=== PATIENT | male | born 1960 | race Hispanic/Latino ===

== ENCOUNTER 2020-12-21 11:47 | Emergency (ER) | payer SELFPAY ==
[~2020-12-21] VITALS: Ht 154.9 cm; Wt 154.2 kg
[~2020-12-21 11:47] MED LIST: NAPR375T6 PO; TAMS-1 PO
[2020-12-21] MEDS ORDERED: ONDANSETRON 4MG INJ IVP SCH (12:30)
[2020-12-21] MEDS ORDERED: 0.9%NACL 1000ML 1,000 ML IV SCH (12:30)
[2020-12-21] MEDS ORDERED: HYDROMORPHONE 1 MG INJ IVP SCH (12:30)
[2020-12-21 12:56] LABS: BASOPHILS % (AUTO) 0.5 % (0.0-5.0); EOSINOPHILS % (AUTO) 4.7 % (0.0-8.0); HEMATOCRIT 41.3 % (42-54); LYMPHOCYTES % (AUTO) 12.1 % (21.0-51.0); MEAN CORPUSCULAR HEMOGLOBIN 31.3 pg (27.0-33.0); MEAN CORPUSCULAR HGB CONC 33.9 g/dL (32.0-36.0); MEAN CORPUSCULAR VOLUME 92.2 fL (79-99); MONOCYTES % (AUTO) 9.2 % (3.0-13.0); NEUTROPHILS % (AUTO) 73.2 % (40.0-77.0); PLATELET COUNT (AUTO) 296 K/uL (130-400); RED BLOOD CELL COUNT(AUTO) 4.48 MIL/uL (4.50-6.20); RED CELL DISTRIBUTION WIDTH 13.2 % (11.0-15.5)
[2020-12-21 13:11] LABS: CREATININE 1.3 mg/dL (0.5-1.5); POTASSIUM 4.4 mmol/L (3.5-5.1)
[2020-12-21 13:15] LABS: ALBUMIN 3.1 g/dL (3.5-5.0); BILIRUBIN,TOTAL 0.3 mg/dL (0.2-1.0); TOTAL PROTEIN, SERUM 9.3 g/dL (6.0-8.3)
[2020-12-21] MEDS ORDERED: NAPR-1180 PO (13:21)
[2020-12-21] MEDS ORDERED: KETOROLAC 30MG VIAL (30MG/ML) ONE (13:27)
[2020-12-21] MEDS ORDERED: KETOROLAC 30MG VIAL (30MG/ML) IV ONE (13:30)
[2020-12-21] MEDS ORDERED: HYDROMORPHONE 1 MG INJ IVP ONE (13:30)
[2020-12-21 14:00] VITALS: BP 160/72
== END 2020-12-21 14:38 | disposition home or self-care (01) ==
LOC: EDH 11:47
DX: N20.1 Calculus of ureter (principal); Z79.1 Long term (current) use of non-steroidal anti-inflammatories (NSAID); Z79.899 Other long term (current) drug therapy
CPT/HCPCS: 36415; 74176; 80053; 85025; 96361; 96374; 96375; 96376; 99284; J1170 ×2; J1885; J2405

== ENCOUNTER 2021-07-18 08:30 | Emergency (ER) | payer OTHER ==
[~2021-07-18] VITALS: Ht 167.6 cm; Wt 149.7 kg
[~2021-07-18 08:30] MED LIST changes: +NAPR-1180 PO
[2021-07-18 08:32] VITALS: BP 159/50
[2021-07-18] MEDS ORDERED: LORATADINE 10 MG TABLET PO SCH (09:00)
[2021-07-18] MEDS ORDERED: DIPHENHYDRAMINE HCL 25 MG CAPSULE PO ONE (09:00)
[2021-07-18] MEDS ORDERED: SOLU-MEDROL 125MG VIAL IM ONE (09:00)
[2021-07-18] MEDS ORDERED: LORA10TA7 PO (09:12)
[2021-07-18] MEDS ORDERED: HYDR28.32 TP (09:12)
[2021-07-18] MEDS ORDERED: PRED20TA3 PO (09:12)
== END 2021-07-18 09:26 | disposition home or self-care (01) ==
LOC: EDH 08:30
DX: L25.9 Unspecified contact dermatitis, unspecified cause (principal); Z79.1 Long term (current) use of non-steroidal anti-inflammatories (NSAID); Z87.442 Personal history of urinary calculi
CPT/HCPCS: 96372; 99283; J2930; Q0163

== ENCOUNTER 2023-09-07 13:12 | Inpatient (IN) | payer BC ==
[~2023-09-07] VITALS: Ht 154.9 cm; Wt 100.9 kg
[~2023-09-07 13:12] MED LIST changes: +HYDR28.32 TP; +LORA10TA7 PO; +PRED20TA3 PO
[2023-09-07 14:23] LABS: BASOPHILS # (AUTO) 0.09 K/uL (0.00-0.20); BASOPHILS % (AUTO) 0.7 % (0.0-5.0); EOSINOPHILS # (AUTO) 0.08 K/uL (0.00-0.70); EOSINOPHILS % (AUTO) 0.6 % (0.0-8.0); HEMATOCRIT 42.6 % (42-54); IMMATURE GRANULOCYTE ABSOLUTE 0.13 K/uL (0-1); LYMPHOCYTES # (AUTO) 1.3 K/uL (1.0-4.8); LYMPHOCYTES % (AUTO) 9.7 % (21.0-51.0); MEAN CORPUSCULAR HGB CONC 34.3 g/dL (32.0-36.0); MEAN CORPUSCULAR VOLUME 87.5 fL (79-99); MONOCYTES # (AUTO) 1.1 K/uL (0.1-1.0); MONOCYTES % (AUTO) 8.6 % (3.0-13.0); NEUTROPHILS # (AUTO) 10.5 K/uL (1.8-7.7); NEUTROPHILS % (AUTO) 79.4 % (40.0-77.0); PLATELET COUNT (AUTO) 446 K/uL (130-400); RED BLOOD CELL COUNT(AUTO) 4.87 MIL/uL (4.50-6.20); RED CELL DISTRIBUTION WIDTH 14.8 % (11.0-15.5); WHITE BLOOD COUNT (AUTO) 13.2 K/uL (4.8-10.8)
[2023-09-07 14:48] LABS: ALBUMIN 1.6 g/dL (3.5-5.0); BILIRUBIN,TOTAL 0.3 mg/dL (0.2-1.0); CREATININE 0.5 mg/dL (0.5-1.3); POTASSIUM 3.1 mmol/L (3.5-5.1); TOTAL PROTEIN, SERUM 7.4 g/dL (6.0-8.3)
[2023-09-07 15:40] LABS: APPEARANCE,URINE CLOUDY (CLEAR); BILIRUBIN,URINE NEGATIVE (NEGATIVE); COLOR,URINE YELLOW (YELLOW); GLUCOSE, URINE (UA) NEGATIVE (NEGATIVE); KETONES,URINE 40 mg/dL (NEGATIVE); LEUKOCYTE ESTERASE ,URINE 250 Leu/uL (NEGATIVE); NITRATE,URINE NEGATIVE (NEGATIVE); OCCULT BLOOD,URINE SMALL (NEGATIVE); PROTEIN,URINE 30 mg/dL (NEGATIVE)
[2023-09-07 15:43] LABS: ADD UA MICROSCOPIC YES
[2023-09-07 15:45] LABS: BACTERIA,URINE MOD /HPF (None Seen); MUCUS,URINE RARE LPF (None Seen); SQUAMOUS EPITHELIAL CELL,UR RARE /HPF (0-2); WBC,URINE 51-100 /HPF (0-1)
[2023-09-07] MEDS: VANCOMYCIN HCL 125 MG/ 2.5 ML SOLN ORAL.SYG PO SCH (17:49)
[2023-09-07] MEDS ORDERED: acetaMINOPHEN 325 MG TAB PO PRN ×2 (19:30)
[2023-09-07] MEDS ORDERED: MORPHINE 2 MG SYG IVP PRN (19:30)
[2023-09-07] MEDS ORDERED: DEXTROSE 50%-WATER 50 ML DISP.SYRIN IV PRN (19:30)
[2023-09-07] MEDS ORDERED: LACTULOSE 20 GM/30 ML UDCUP PO PRN (19:30)
[2023-09-07] MEDS ORDERED: ZOLPidem TARTrate 5 MG TAB PO PRN (19:30)
[2023-09-07] MEDS ORDERED: FAMOTIDINE 20MG VIAL IV PRN (19:30)
[2023-09-07] MEDS ORDERED: guaiFENesin-coDEINE-DM 200/20 MG 10 ML PO PRN (19:30)
[2023-09-07] MEDS ORDERED: DiphenhydrAMINE HCL 50 MG/ML VIAL IV PRN (19:30)
[2023-09-07] MEDS ORDERED: KETOROLAC 15MG/ML VIAL (15MG/ML) IV PRN (19:30)
[2023-09-07] MEDS ORDERED: GLUCAGON 1MG KIT 1 MG ML IM PRN (19:30)
[2023-09-07] MEDS ORDERED: NITROGLYCERIN 0.4 MG SL TAB SL PRN (19:30)
[2023-09-07 20:45] VITALS: BP 140/60; PULSE 80; RESP 20
[2023-09-07] MEDS: INSULIN humuLIN R 100 UNIT/ML 3ML SQ SCH (21:00)
[2023-09-08] VITALS: BP 118/63; PULSE 74; RESP 16
[2023-09-08] MEDS: HEParin 5,000 UNIT VIAL SQ SCH (00:13)
[2023-09-08] MEDS ORDERED: NAPROXEN 375 MG PO PRN (00:30)
[2023-09-08] MEDS: KCL 20 MEQ ERTAB PO PRN (00:54)
[2023-09-08 03:43] VITALS: BP 145/79; PULSE 57; RESP 20
[2023-09-08 04:38] LABS: BASOPHILS # (AUTO) 0.07 K/uL (0.00-0.20); BASOPHILS % (AUTO) 0.5 % (0.0-5.0); EOSINOPHILS # (AUTO) 0.11 K/uL (0.00-0.70); EOSINOPHILS % (AUTO) 0.8 % (0.0-8.0); HEMATOCRIT 39.7 % (42-54); IMMATURE GRANULOCYTE ABSOLUTE 0.13 K/uL (0-1); LYMPHOCYTES # (AUTO) 1.6 K/uL (1.0-4.8); LYMPHOCYTES % (AUTO) 12.3 % (21.0-51.0); MEAN CORPUSCULAR HEMOGLOBIN 30.5 pg (27.0-33.0); MEAN CORPUSCULAR VOLUME 89.6 fL (79-99); MONOCYTES # (AUTO) 1.2 K/uL (0.1-1.0); MONOCYTES % (AUTO) 9.2 % (3.0-13.0); NEUTROPHILS % (AUTO) 76.2 % (40.0-77.0); PLATELET COUNT (AUTO) 384 K/uL (130-400); RED BLOOD CELL COUNT(AUTO) 4.43 MIL/uL (4.50-6.20); RED CELL DISTRIBUTION WIDTH 14.6 % (11.0-15.5); WHITE BLOOD COUNT (AUTO) 13.1 K/uL (4.8-10.8)
[2023-09-08 05:00] LABS: ALBUMIN 1.6 g/dL (3.5-5.0); BILIRUBIN,DIRECT 0.2 mg/dL (0.0-0.3); BILIRUBIN,TOTAL 0.4 mg/dL (0.2-1.0); CREATININE 0.5 mg/dL (0.5-1.3); MAGNESIUM 1.7 mg/dL (1.80-2.40); POTASSIUM 3.1 mmol/L (3.5-5.1)
[2023-09-08 05:33] LABS: HEMOGLOBIN A1C 5.8 % (4.0-6.0)
[2023-09-08] MEDS: MAGNESIUM 2GM PREMIX 50ML 50 ML IV PRN (05:47)
[2023-09-08 08:00] VITALS: BP 115/55; PULSE 70; RESP 19; O2SAT 94
[2023-09-08] MEDS: cefTRIAXone 1G VIAL IVPB SCH (10:26)
[2023-09-08] MEDS: LACTOBACILLUS RHAMNOSUS GG 1 EACH CAP.SPRINK PO SCH (10:26)
[2023-09-08] MEDS: tamSULOsin HCL 0.4 MG CAP.ER.24H PO SCH (10:29)
[2023-09-08] MEDS: LORATAdine 10 mg 10 MG TABLET PO SCH (10:29)
[2023-09-08 12:00] VITALS: BP 112/63; PULSE 71; RESP 18
[2023-09-08] MEDS ORDERED: COMPOUND PO REF 1 EA BTL MISC PRN (13:30)
[2023-09-08] MEDS ORDERED: COMPOUND PO MISCELLANEOUS 1 EACH MISC MISC PRN (13:30)
[2023-09-08] MEDS: VANCOMYCIN HCL 125 MG/ 2.5 ML SOLN ORAL.SYG PO SCH (13:46)
[2023-09-08 16:00] VITALS: BP 114/57; PULSE 72; RESP 18
[2023-09-08 20:00] VITALS: BP 123/61; PULSE 69; RESP 19; O2SAT 95
[2023-09-09] VITALS (7 sets, daily range): BP systolic 121–152; BP diastolic 59–82; PULSE 67–99; RESP 16–19; O2SAT 94–97
[2023-09-09 05:13] LABS: BASOPHILS # (AUTO) 0.04 K/uL (0.00-0.20); BASOPHILS % (AUTO) 0.4 % (0.0-5.0); EOSINOPHILS % (AUTO) 1.8 % (0.0-8.0); HEMATOCRIT 41.4 % (42-54); IMMATURE GRANULOCYTE ABSOLUTE 0.14 K/uL (0-1); LYMPHOCYTES # (AUTO) 1.6 K/uL (1.0-4.8); LYMPHOCYTES % (AUTO) 14.8 % (21.0-51.0); MEAN CORPUSCULAR HEMOGLOBIN 30.7 pg (27.0-33.0); MEAN CORPUSCULAR HGB CONC 34.1 g/dL (32.0-36.0); MONOCYTES # (AUTO) 0.8 K/uL (0.1-1.0); MONOCYTES % (AUTO) 7.5 % (3.0-13.0); NEUTROPHILS % (AUTO) 74.2 % (40.0-77.0); PLATELET COUNT (AUTO) 350 K/uL (130-400); RED CELL DISTRIBUTION WIDTH 14.7 % (11.0-15.5); WHITE BLOOD COUNT (AUTO) 10.8 K/uL (4.8-10.8)
[2023-09-09] MEDS ORDERED: AMIN30LI28 PO (05:24)
[2023-09-09] MEDS ORDERED: SENN8.6T32 PO (05:24)
[2023-09-09] MEDS ORDERED: LOPE-198 PO (05:24)
[2023-09-09] MEDS ORDERED: AMLO-258 PO (05:24)
[2023-09-09] MEDS ORDERED: ASCO500T10 PO (05:24)
[2023-09-09] MEDS ORDERED: FIDA200T PO (05:24)
[2023-09-09] MEDS ORDERED: SIME80TA12 PO (05:24)
[2023-09-09] MEDS ORDERED: ENOX40DI8 SQ (05:24)
[2023-09-09] MEDS ORDERED: MULT-264 PO (05:24)
[2023-09-09] MEDS ORDERED: MELA3TAB41 PO (05:24)
[2023-09-09] MEDS ORDERED: ACET325T51 PO (05:24)
[2023-09-09 05:49] LABS: ALBUMIN 1.6 g/dL (3.5-5.0); BILIRUBIN,TOTAL 0.2 mg/dL (0.2-1.0); CREATININE 0.5 mg/dL (0.5-1.3); MAGNESIUM 1.9 mg/dL (1.80-2.40)
[2023-09-09] MEDS: POTASSIUM CHLORIDE 10MEQ/100ML 100 ML IV PRN (06:07)
[2023-09-10] VITALS (7 sets, daily range): BP systolic 126–136; BP diastolic 63–72; PULSE 68–78; RESP 17–18; O2SAT 96
[2023-09-10] MEDS: LOPERAMIDE 1 MG/7.5 ML UDCUP PO PRN (02:40)
[2023-09-10 05:50] LABS: BASOPHILS # (AUTO) 0.06 K/uL (0.00-0.20); BASOPHILS % (AUTO) 0.5 % (0.0-5.0); EOSINOPHILS # (AUTO) 0.24 K/uL (0.00-0.70); HEMATOCRIT 40.5 % (42-54); IMMATURE GRANULOCYTE ABSOLUTE 0.14 K/uL (0-1); LYMPHOCYTES # (AUTO) 1.6 K/uL (1.0-4.8); LYMPHOCYTES % (AUTO) 13.1 % (21.0-51.0); MEAN CORPUSCULAR HEMOGLOBIN 29.9 pg (27.0-33.0); MEAN CORPUSCULAR HGB CONC 33.1 g/dL (32.0-36.0); MEAN CORPUSCULAR VOLUME 90.4 fL (79-99); MONOCYTES # (AUTO) 0.9 K/uL (0.1-1.0); MONOCYTES % (AUTO) 7.8 % (3.0-13.0); NEUTROPHILS # (AUTO) 9.1 K/uL (1.8-7.7); NEUTROPHILS % (AUTO) 75.4 % (40.0-77.0); PLATELET COUNT (AUTO) 419 K/uL (130-400); RED BLOOD CELL COUNT(AUTO) 4.48 MIL/uL (4.50-6.20); RED CELL DISTRIBUTION WIDTH 14.9 % (11.0-15.5)
[2023-09-10 06:08] LABS: ALBUMIN 1.6 g/dL (3.5-5.0); BILIRUBIN,TOTAL 0.2 mg/dL (0.2-1.0); CREATININE 0.5 mg/dL (0.5-1.3); MAGNESIUM 1.8 mg/dL (1.80-2.40); POTASSIUM 3.1 mmol/L (3.5-5.1); TOTAL PROTEIN, SERUM 6.8 g/dL (6.0-8.3)
[2023-09-11] VITALS (7 sets, daily range): BP systolic 121–144; BP diastolic 59–69; PULSE 70–80; RESP 17–22; O2SAT 97
[2023-09-11 08:27] LABS: ALBUMIN 1.7 g/dL (3.5-5.0); BILIRUBIN,TOTAL 0.3 mg/dL (0.2-1.0); CREATININE 0.6 mg/dL (0.5-1.3); MAGNESIUM 1.9 mg/dL (1.80-2.40); POTASSIUM 3.4 mmol/L (3.5-5.1); TOTAL PROTEIN, SERUM 7.3 g/dL (6.0-8.3)
[2023-09-11] MEDS: POTASSIUM CHLORIDE 10MEQ SR TAB PO PRN (14:01)
[2023-09-12] VITALS (8 sets, daily range): BP systolic 121–133; BP diastolic 60–62; PULSE 68–80; RESP 17–19; O2SAT 97
[2023-09-13] VITALS (7 sets, daily range): BP systolic 109–125; BP diastolic 57–59; PULSE 75–82; RESP 18–20; O2SAT 96–99
[2023-09-13 09:04] LABS: BASOPHILS # (AUTO) 0.12 K/uL (0.00-0.20); BASOPHILS % (AUTO) 0.4 % (0.0-5.0); EOSINOPHILS # (AUTO) 0.02 K/uL (0.00-0.70); EOSINOPHILS % (AUTO) 0.1 % (0.0-8.0); HEMATOCRIT 41.1 % (42-54); IMMATURE GRANULOCYTE ABSOLUTE 0.27 K/uL (0-1); LYMPHOCYTES % (AUTO) 3.7 % (21.0-51.0); MEAN CORPUSCULAR HGB CONC 33.8 g/dL (32.0-36.0); MEAN CORPUSCULAR VOLUME 88.6 fL (79-99); MONOCYTES # (AUTO) 1.8 K/uL (0.1-1.0); MONOCYTES % (AUTO) 6.4 % (3.0-13.0); NEUTROPHILS # (AUTO) 24.7 K/uL (1.8-7.7); NEUTROPHILS % (AUTO) 88.4 % (40.0-77.0); PLATELET COUNT (AUTO) 345 K/uL (130-400); RED BLOOD CELL COUNT(AUTO) 4.64 MIL/uL (4.50-6.20); RED CELL DISTRIBUTION WIDTH 15.4 % (11.0-15.5)
[2023-09-13 09:18] LABS: ALBUMIN 1.4 g/dL (3.5-5.0); BILIRUBIN,TOTAL 0.5 mg/dL (0.2-1.0); CREATININE 0.6 mg/dL (0.5-1.3); MAGNESIUM 2.2 mg/dL (1.80-2.40); POTASSIUM 3.6 mmol/L (3.5-5.1); TOTAL PROTEIN, SERUM 7.2 g/dL (6.0-8.3)
[2023-09-13 14:08] LABS: HEMATOCRIT 42.1 % (42-54); MEAN CORPUSCULAR HEMOGLOBIN 30.4 pg (27.0-33.0); MEAN CORPUSCULAR HGB CONC 33.7 g/dL (32.0-36.0); MEAN CORPUSCULAR VOLUME 90.1 fL (79-99); RED BLOOD CELL COUNT(AUTO) 4.67 MIL/uL (4.50-6.20); RED CELL DISTRIBUTION WIDTH 15.1 % (11.0-15.5); WHITE BLOOD COUNT (AUTO) 25.4 K/uL (4.8-10.8)
[2023-09-13] MEDS: MAG/ALUM/SIMETH 30 ML UDCUP PO PRN (23:40)
[2023-09-14] VITALS (7 sets, daily range): BP systolic 103–121; BP diastolic 55–63; PULSE 67–84; RESP 18–20; O2SAT 94
[2023-09-14 13:12] LABS: MEAN CORPUSCULAR HEMOGLOBIN 30.6 pg (27.0-33.0); MEAN CORPUSCULAR HGB CONC 33.2 g/dL (32.0-36.0); MEAN CORPUSCULAR VOLUME 92.3 fL (79-99); RED BLOOD CELL COUNT(AUTO) 4.44 MIL/uL (4.50-6.20); RED CELL DISTRIBUTION WIDTH 15.4 % (11.0-15.5); WHITE BLOOD COUNT (AUTO) 17.9 K/uL (4.8-10.8)
[2023-09-14 13:48] LABS: ALBUMIN 1.3 g/dL (3.5-5.0); BILIRUBIN,TOTAL 0.4 mg/dL (0.2-1.0); CREATININE 0.6 mg/dL (0.5-1.3); POTASSIUM 4.1 mmol/L (3.5-5.1); TOTAL PROTEIN, SERUM 6.9 g/dL (6.0-8.3)
[2023-09-15] VITALS (8 sets, daily range): BP systolic 108–123; BP diastolic 57–68; PULSE 71–79; RESP 18–20; O2SAT 97–98
[2023-09-15 05:23] LABS: BASOPHILS # (AUTO) 0.05 K/uL (0.00-0.20); BASOPHILS % (AUTO) 0.4 % (0.0-5.0); EOSINOPHILS # (AUTO) 0.18 K/uL (0.00-0.70); EOSINOPHILS % (AUTO) 1.4 % (0.0-8.0); HEMATOCRIT 37.4 % (42-54); LYMPHOCYTES # (AUTO) 1.4 K/uL (1.0-4.8); MEAN CORPUSCULAR HEMOGLOBIN 29.6 pg (27.0-33.0); MEAN CORPUSCULAR HGB CONC 33.4 g/dL (32.0-36.0); MEAN CORPUSCULAR VOLUME 88.6 fL (79-99); MONOCYTES % (AUTO) 7.8 % (3.0-13.0); NEUTROPHILS # (AUTO) 10.2 K/uL (1.8-7.7); NEUTROPHILS % (AUTO) 78.6 % (40.0-77.0); PLATELET COUNT (AUTO) 346 K/uL (130-400); RED BLOOD CELL COUNT(AUTO) 4.22 MIL/uL (4.50-6.20); RED CELL DISTRIBUTION WIDTH 15.3 % (11.0-15.5)
[2023-09-15 05:40] LABS: ALBUMIN 1.3 g/dL (3.5-5.0); BILIRUBIN,TOTAL 0.4 mg/dL (0.2-1.0); CREATININE 0.5 mg/dL (0.5-1.3); POTASSIUM 3.4 mmol/L (3.5-5.1); TOTAL PROTEIN, SERUM 6.5 g/dL (6.0-8.3)
[2023-09-15] MEDS: KCL 20 MEQ ERTAB PO ONE ×2 (10:27→19:59)
[2023-09-16] VITALS (8 sets, daily range): BP systolic 113–143; BP diastolic 60–76; PULSE 67–78; RESP 16–19; O2SAT 97
[2023-09-16 03:48] LABS: BASOPHILS # (AUTO) 0.04 K/uL (0.00-0.20); BASOPHILS % (AUTO) 0.5 % (0.0-5.0); EOSINOPHILS # (AUTO) 0.13 K/uL (0.00-0.70); EOSINOPHILS % (AUTO) 1.5 % (0.0-8.0); HEMATOCRIT 39.6 % (42-54); IMMATURE GRANULOCYTE ABSOLUTE 0.06 K/uL (0-1); LYMPHOCYTES # (AUTO) 1.6 K/uL (1.0-4.8); LYMPHOCYTES % (AUTO) 18.4 % (21.0-51.0); MEAN CORPUSCULAR HEMOGLOBIN 29.9 pg (27.0-33.0); MEAN CORPUSCULAR HGB CONC 33.8 g/dL (32.0-36.0); MEAN CORPUSCULAR VOLUME 88.4 fL (79-99); MONOCYTES % (AUTO) 11.7 % (3.0-13.0); NEUTROPHILS # (AUTO) 5.8 K/uL (1.8-7.7); NEUTROPHILS % (AUTO) 67.2 % (40.0-77.0); PLATELET COUNT (AUTO) 379 K/uL (130-400); RED BLOOD CELL COUNT(AUTO) 4.48 MIL/uL (4.50-6.20); RED CELL DISTRIBUTION WIDTH 15.2 % (11.0-15.5); WHITE BLOOD COUNT (AUTO) 8.6 K/uL (4.8-10.8)
[2023-09-16 04:12] LABS: ALBUMIN 1.4 g/dL (3.5-5.0); BILIRUBIN,TOTAL 0.3 mg/dL (0.2-1.0); CREATININE 0.5 mg/dL (0.5-1.3); MAGNESIUM 1.9 mg/dL (1.80-2.40); POTASSIUM 4.6 mmol/L (3.5-5.1); TOTAL PROTEIN, SERUM 6.8 g/dL (6.0-8.3)
[2023-09-17 04:19] VITALS: BP_SYST 119; BP_SYST 129; BP_DIAS 67; BP_DIAS 79; PULSE 69; RESP 16
[2023-09-17 05:46] LABS: BASOPHILS # (AUTO) 0.04 K/uL (0.00-0.20); BASOPHILS % (AUTO) 0.5 % (0.0-5.0); EOSINOPHILS # (AUTO) 0.11 K/uL (0.00-0.70); EOSINOPHILS % (AUTO) 1.4 % (0.0-8.0); HEMATOCRIT 40.8 % (42-54); IMMATURE GRANULOCYTE ABSOLUTE 0.05 K/uL (0-1); LYMPHOCYTES # (AUTO) 1.4 K/uL (1.0-4.8); LYMPHOCYTES % (AUTO) 17.9 % (21.0-51.0); MEAN CORPUSCULAR HEMOGLOBIN 30.4 pg (27.0-33.0); MEAN CORPUSCULAR HGB CONC 32.8 g/dL (32.0-36.0); MEAN CORPUSCULAR VOLUME 92.5 fL (79-99); MONOCYTES % (AUTO) 12.1 % (3.0-13.0); NEUTROPHILS # (AUTO) 5.4 K/uL (1.8-7.7); NEUTROPHILS % (AUTO) 67.5 % (40.0-77.0); PLATELET COUNT (AUTO) 395 K/uL (130-400); RED BLOOD CELL COUNT(AUTO) 4.41 MIL/uL (4.50-6.20); RED CELL DISTRIBUTION WIDTH 15.4 % (11.0-15.5); WHITE BLOOD COUNT (AUTO) 7.9 K/uL (4.8-10.8)
[2023-09-17 06:12] LABS: ALBUMIN 1.5 g/dL (3.5-5.0); BILIRUBIN,TOTAL 0.3 mg/dL (0.2-1.0); CREATININE 0.6 mg/dL (0.5-1.3); POTASSIUM 4.1 mmol/L (3.5-5.1)
[2023-09-17 08:00] VITALS: BP 157/68; PULSE 74; RESP 20; O2SAT 97
[2023-09-17 12:00] VITALS: BP 135/84; PULSE 73; RESP 18
[2023-09-17 16:00] VITALS: BP 113/66; PULSE 70; RESP 20
[2023-09-17 19:29] VITALS: O2SAT 99
[2023-09-17 20:00] VITALS: BP 109/59; PULSE 77; RESP 18
[2023-09-18] VITALS (7 sets, daily range): BP systolic 104–130; BP diastolic 54–63; PULSE 72–81; RESP 19–20; O2SAT 97–98
[2023-09-18 05:19] LABS: BASOPHILS # (AUTO) 0.03 K/uL (0.00-0.20); BASOPHILS % (AUTO) 0.4 % (0.0-5.0); EOSINOPHILS % (AUTO) 1.2 % (0.0-8.0); HEMATOCRIT 39.9 % (42-54); IMMATURE GRANULOCYTE ABSOLUTE 0.05 K/uL (0-1); LYMPHOCYTES # (AUTO) 1.5 K/uL (1.0-4.8); LYMPHOCYTES % (AUTO) 18.1 % (21.0-51.0); MEAN CORPUSCULAR HEMOGLOBIN 30.1 pg (27.0-33.0); MEAN CORPUSCULAR HGB CONC 33.1 g/dL (32.0-36.0); MEAN CORPUSCULAR VOLUME 90.9 fL (79-99); MONOCYTES % (AUTO) 12.1 % (3.0-13.0); NEUTROPHILS # (AUTO) 5.7 K/uL (1.8-7.7); NEUTROPHILS % (AUTO) 67.6 % (40.0-77.0); PLATELET COUNT (AUTO) 378 K/uL (130-400); RED BLOOD CELL COUNT(AUTO) 4.39 MIL/uL (4.50-6.20); RED CELL DISTRIBUTION WIDTH 15.2 % (11.0-15.5); WHITE BLOOD COUNT (AUTO) 8.4 K/uL (4.8-10.8)
[2023-09-18 05:40] LABS: ALBUMIN 1.5 g/dL (3.5-5.0); BILIRUBIN,TOTAL 0.2 mg/dL (0.2-1.0); CREATININE 0.6 mg/dL (0.5-1.3); MAGNESIUM 1.9 mg/dL (1.80-2.40); POTASSIUM 3.8 mmol/L (3.5-5.1); TOTAL PROTEIN, SERUM 6.9 g/dL (6.0-8.3)
[2023-09-19] VITALS (8 sets, daily range): BP systolic 107–139; BP diastolic 42–67; PULSE 68–77; RESP 14–18; O2SAT 98–100
[2023-09-19 05:24] LABS: BASOPHILS # (AUTO) 0.03 K/uL (0.00-0.20); BASOPHILS % (AUTO) 0.4 % (0.0-5.0); EOSINOPHILS # (AUTO) 0.13 K/uL (0.00-0.70); EOSINOPHILS % (AUTO) 1.6 % (0.0-8.0); HEMATOCRIT 39.5 % (42-54); IMMATURE GRANULOCYTE ABSOLUTE 0.06 K/uL (0-1); LYMPHOCYTES # (AUTO) 1.6 K/uL (1.0-4.8); LYMPHOCYTES % (AUTO) 19.6 % (21.0-51.0); MEAN CORPUSCULAR HEMOGLOBIN 29.7 pg (27.0-33.0); MEAN CORPUSCULAR HGB CONC 33.2 g/dL (32.0-36.0); MEAN CORPUSCULAR VOLUME 89.6 fL (79-99); MONOCYTES % (AUTO) 11.4 % (3.0-13.0); NEUTROPHILS # (AUTO) 5.5 K/uL (1.8-7.7); NEUTROPHILS % (AUTO) 66.3 % (40.0-77.0); PLATELET COUNT (AUTO) 412 K/uL (130-400); RED BLOOD CELL COUNT(AUTO) 4.41 MIL/uL (4.50-6.20); RED CELL DISTRIBUTION WIDTH 15.4 % (11.0-15.5); WHITE BLOOD COUNT (AUTO) 8.4 K/uL (4.8-10.8)
[2023-09-19 05:46] LABS: ALBUMIN 1.6 g/dL (3.5-5.0); BILIRUBIN,TOTAL 0.3 mg/dL (0.2-1.0); CREATININE 0.5 mg/dL (0.5-1.3); MAGNESIUM 2.3 mg/dL (1.80-2.40); POTASSIUM 3.7 mmol/L (3.5-5.1); TOTAL PROTEIN, SERUM 7.3 g/dL (6.0-8.3)
[2023-09-20] VITALS (8 sets, daily range): BP systolic 103–130; BP diastolic 56–69; PULSE 72–86; RESP 14–18; O2SAT 98
[2023-09-20 06:20] LABS: HEMATOCRIT 40.1 % (42-54); MEAN CORPUSCULAR HEMOGLOBIN 29.8 pg (27.0-33.0); MEAN CORPUSCULAR HGB CONC 32.9 g/dL (32.0-36.0); MEAN CORPUSCULAR VOLUME 90.5 fL (79-99); RED BLOOD CELL COUNT(AUTO) 4.43 MIL/uL (4.50-6.20); RED CELL DISTRIBUTION WIDTH 15.5 % (11.0-15.5)
[2023-09-20 06:32] LABS: CREATININE 0.6 mg/dL (0.5-1.3); POTASSIUM 3.8 mmol/L (3.5-5.1)
[2023-09-20] MEDS: acetaMINOPHEN 325 MG TAB PO PRN (12:05)
[2023-09-21] VITALS (7 sets, daily range): BP systolic 128–149; BP diastolic 61–76; PULSE 66–87; RESP 16–20; O2SAT 95–96
[2023-09-21] MEDS: LACTULOSE 20 GM/30 ML UDCUP PO ONE ×2 (12:24→16:02)
[2023-09-21 13:08] LABS: HEMATOCRIT 44.3 % (42-54); MEAN CORPUSCULAR HEMOGLOBIN 29.5 pg (27.0-33.0); MEAN CORPUSCULAR HGB CONC 32.7 g/dL (32.0-36.0); RED BLOOD CELL COUNT(AUTO) 4.92 MIL/uL (4.50-6.20); RED CELL DISTRIBUTION WIDTH 15.5 % (11.0-15.5); WHITE BLOOD COUNT (AUTO) 6.5 K/uL (4.8-10.8)
[2023-09-21 13:22] LABS: CREATININE 0.7 mg/dL (0.5-1.3); POTASSIUM 4.1 mmol/L (3.5-5.1)
[2023-09-21] MEDS: MAGNESIUM CITRATE 296 ML SOLUTION PO ONE (16:02)
[2023-09-21] MEDS: PEG 3350/NA SULF,BICARB,CL/KCL 4000 ML SOLN PO ONE (16:02)
[2023-09-21] MEDS: PANTOPRAZOLE 40 MG/VIAL IVP SCH (16:03)
[2023-09-21] MEDS: ONDANSETRON 4MG INJ IV PRN (20:08)
[2023-09-22] VITALS (23 sets, daily range): BP systolic 16–140; BP diastolic 45–81; PULSE 60–79; RESP 16–20; O2SAT 96–97
[2023-09-22 04:48] LABS: HEMATOCRIT 43.9 % (42-54); MEAN CORPUSCULAR HEMOGLOBIN 29.4 pg (27.0-33.0); MEAN CORPUSCULAR HGB CONC 32.1 g/dL (32.0-36.0); MEAN CORPUSCULAR VOLUME 91.6 fL (79-99); RED BLOOD CELL COUNT(AUTO) 4.79 MIL/uL (4.50-6.20); RED CELL DISTRIBUTION WIDTH 15.7 % (11.0-15.5); WHITE BLOOD COUNT (AUTO) 9.1 K/uL (4.8-10.8)
[2023-09-22 05:07] LABS: CREATININE 0.6 mg/dL (0.5-1.3); POTASSIUM 3.8 mmol/L (3.5-5.1)
[2023-09-22] MEDS ORDERED: KETAMINE 50MG/ML SYRINGE 50 MG/ML DISP.SYRIN ONE (15:01)
[2023-09-22] MEDS ORDERED: LIDOCAINE PF 100MG/5ML (2%) SYRINGE 5ML ONE (15:01)
[2023-09-22] MEDS ORDERED: proPOFol 10 MG/ML 20ML VIAL IV ONE (15:01)
[2023-09-22] MEDS ORDERED: VANCOMYCIN HCL 125 MG/ 2.5 ML SOLN ORAL.SYG PO SCH (16:30)
[2023-09-23 04:00] VITALS: BP 127/62; PULSE 69; RESP 20
[2023-09-23 05:54] LABS: HEMATOCRIT 38.5 % (42-54); MEAN CORPUSCULAR HEMOGLOBIN 29.8 pg (27.0-33.0); MEAN CORPUSCULAR HGB CONC 33.2 g/dL (32.0-36.0); MEAN CORPUSCULAR VOLUME 89.5 fL (79-99); RED BLOOD CELL COUNT(AUTO) 4.3 MIL/uL (4.50-6.20); RED CELL DISTRIBUTION WIDTH 15.7 % (11.0-15.5); WHITE BLOOD COUNT (AUTO) 5.1 K/uL (4.8-10.8)
[2023-09-23 06:07] LABS: CREATININE 0.6 mg/dL (0.5-1.3); POTASSIUM 3.2 mmol/L (3.5-5.1)
[2023-09-23] MEDS ORDERED: VANCOMYCIN HCL 125 MG/ 2.5 ML SOLN ORAL.SYG PO SCH (07:30)
[2023-09-23 08:00] VITALS: BP 129/46; PULSE 68; RESP 20
[2023-09-23 09:10] VITALS: O2SAT 98
[2023-09-23 12:00] VITALS: BP 110/69; PULSE 66; RESP 20
[2023-09-23 16:00] VITALS: BP 114/60; PULSE 72; RESP 20
[2023-09-23] MEDS: VANCOMYCIN HCL 250/5ML SOLN ORAL.SYG PO SCH (18:04)
[2023-09-23 20:00] VITALS: BP 130/65; PULSE 71; RESP 17; O2SAT 95
[2023-09-24] VITALS (7 sets, daily range): BP systolic 109–144; BP diastolic 55–69; PULSE 65–77; RESP 15–18; O2SAT 95–100
[2023-09-24] MEDS: VANCOMYCIN HCL 250/5ML SOLN ORAL.SYG PO SCH (00:08)
[2023-09-24 03:38] LABS: HEMATOCRIT 40.4 % (42-54); MEAN CORPUSCULAR HEMOGLOBIN 29.9 pg (27.0-33.0); MEAN CORPUSCULAR HGB CONC 32.7 g/dL (32.0-36.0); MEAN CORPUSCULAR VOLUME 91.4 fL (79-99); RED BLOOD CELL COUNT(AUTO) 4.42 MIL/uL (4.50-6.20); RED CELL DISTRIBUTION WIDTH 15.7 % (11.0-15.5); WHITE BLOOD COUNT (AUTO) 5.5 K/uL (4.8-10.8)
[2023-09-24 03:49] LABS: CREATININE 0.6 mg/dL (0.5-1.3); MAGNESIUM 1.8 mg/dL (1.80-2.40); POTASSIUM 3.5 mmol/L (3.5-5.1)
[2023-09-24] MEDS: POTASSIUM CHLORIDE 10% ELIXIR 20 MEQ/15 ML UDCUP PO PRN (08:30)
[2023-09-25] VITALS (8 sets, daily range): BP systolic 127–134; BP diastolic 55–69; PULSE 58–66; RESP 17–24; O2SAT 100
[2023-09-25 06:02] LABS: HEMATOCRIT 38.2 % (42-54); MEAN CORPUSCULAR HEMOGLOBIN 29.3 pg (27.0-33.0); MEAN CORPUSCULAR HGB CONC 32.7 g/dL (32.0-36.0); MEAN CORPUSCULAR VOLUME 89.7 fL (79-99); RED BLOOD CELL COUNT(AUTO) 4.26 MIL/uL (4.50-6.20); RED CELL DISTRIBUTION WIDTH 15.9 % (11.0-15.5); WHITE BLOOD COUNT (AUTO) 4.5 K/uL (4.8-10.8)
[2023-09-25 06:10] LABS: CREATININE 0.7 mg/dL (0.5-1.3); POTASSIUM 3.2 mmol/L (3.5-5.1)
[2023-09-25] MEDS: KETOROLAC 15MG/ML VIAL (15MG/ML) IV ONE (13:51)
[2023-09-25] MEDS: VANCOMYCIN HCL 250/5ML SOLN ORAL.SYG PO SCH (17:47)
[2023-09-26] VITALS (8 sets, daily range): BP systolic 116–147; BP diastolic 59–72; PULSE 64–74; RESP 14–24; O2SAT 97–100
[2023-09-26 06:07] LABS: HEMATOCRIT 38.6 % (42-54); MEAN CORPUSCULAR HEMOGLOBIN 29.7 pg (27.0-33.0); MEAN CORPUSCULAR HGB CONC 32.1 g/dL (32.0-36.0); MEAN CORPUSCULAR VOLUME 92.6 fL (79-99); RED BLOOD CELL COUNT(AUTO) 4.17 MIL/uL (4.50-6.20); WHITE BLOOD COUNT (AUTO) 4.3 K/uL (4.8-10.8)
[2023-09-26 06:18] LABS: CREATININE 0.7 mg/dL (0.5-1.3); POTASSIUM 3.7 mmol/L (3.5-5.1)
[2023-09-27] VITALS (7 sets, daily range): BP systolic 122–154; BP diastolic 57–69; PULSE 64–68; RESP 16–18; O2SAT 96
[2023-09-27 05:28] LABS: HEMATOCRIT 37.6 % (42-54); MEAN CORPUSCULAR HEMOGLOBIN 29.4 pg (27.0-33.0); MEAN CORPUSCULAR VOLUME 89.1 fL (79-99); RED BLOOD CELL COUNT(AUTO) 4.22 MIL/uL (4.50-6.20); RED CELL DISTRIBUTION WIDTH 16.1 % (11.0-15.5); WHITE BLOOD COUNT (AUTO) 4.8 K/uL (4.8-10.8)
[2023-09-27 05:40] LABS: CREATININE 0.6 mg/dL (0.5-1.3); POTASSIUM 3.7 mmol/L (3.5-5.1)
[2023-09-28] VITALS (8 sets, daily range): BP systolic 94–147; BP diastolic 37–70; PULSE 64–75; RESP 14–20; O2SAT 98
[2023-09-28 06:21] LABS: HEMATOCRIT 38.8 % (42-54); MEAN CORPUSCULAR VOLUME 93.9 fL (79-99); RED BLOOD CELL COUNT(AUTO) 4.13 MIL/uL (4.50-6.20); RED CELL DISTRIBUTION WIDTH 16.3 % (11.0-15.5); WHITE BLOOD COUNT (AUTO) 4.9 K/uL (4.8-10.8)
[2023-09-28 06:30] LABS: CREATININE 0.6 mg/dL (0.5-1.3); POTASSIUM 3.9 mmol/L (3.5-5.1)
[2023-09-29 03:00] VITALS: BP 123/69; PULSE 71; RESP 14
[2023-09-29 08:00] VITALS: BP 129/56; PULSE 64; RESP 16; O2SAT 98
[2023-09-29 12:00] VITALS: BP 116/49; PULSE 75; RESP 16
[2023-09-29 16:00] VITALS: BP 120/88; PULSE 87; RESP 16
[2023-09-29 20:00] VITALS: BP 105/57; PULSE 73; RESP 20
[2023-09-29 20:45] VITALS: O2SAT 98
[2023-09-30] VITALS (7 sets, daily range): BP systolic 103–137; BP diastolic 48–72; PULSE 62–73; RESP 16–20; O2SAT 97–99
[2023-09-30 05:29] LABS: HEMATOCRIT 38.4 % (42-54); MEAN CORPUSCULAR HEMOGLOBIN 30.2 pg (27.0-33.0); MEAN CORPUSCULAR HGB CONC 32.3 g/dL (32.0-36.0); MEAN CORPUSCULAR VOLUME 93.4 fL (79-99); RED BLOOD CELL COUNT(AUTO) 4.11 MIL/uL (4.50-6.20); RED CELL DISTRIBUTION WIDTH 16.4 % (11.0-15.5)
[2023-09-30 05:51] LABS: CREATININE 0.7 mg/dL (0.5-1.3); POTASSIUM 3.7 mmol/L (3.5-5.1)
[2023-10-01] VITALS (8 sets, daily range): BP systolic 122–142; BP diastolic 53–68; PULSE 64–76; RESP 14–18; O2SAT 99
[2023-10-02] VITALS (8 sets, daily range): BP systolic 110–140; BP diastolic 59–73; PULSE 63–75; RESP 14–19; O2SAT 98–100
[2023-10-02 05:50] LABS: HEMATOCRIT 36.8 % (42-54); MEAN CORPUSCULAR HEMOGLOBIN 30.1 pg (27.0-33.0); MEAN CORPUSCULAR HGB CONC 32.6 g/dL (32.0-36.0); MEAN CORPUSCULAR VOLUME 92.2 fL (79-99); RED BLOOD CELL COUNT(AUTO) 3.99 MIL/uL (4.50-6.20); RED CELL DISTRIBUTION WIDTH 16.5 % (11.0-15.5); WHITE BLOOD COUNT (AUTO) 5.4 K/uL (4.8-10.8)
[2023-10-02 06:01] LABS: CREATININE 0.7 mg/dL (0.5-1.3); POTASSIUM 3.8 mmol/L (3.5-5.1)
[2023-10-02] MEDS: LISINOPRIL 2.5 MG TABLET PO ONE (10:21)
[2023-10-03] VITALS (8 sets, daily range): BP systolic 106–144; BP diastolic 47–66; PULSE 69–74; RESP 18–19; O2SAT 98–100
[2023-10-03] MEDS: LISINOPRIL 2.5 MG TABLET PO SCH (09:54)
[2023-10-04] VITALS (7 sets, daily range): BP systolic 80–118; BP diastolic 40–68; PULSE 63–80; RESP 17–18; O2SAT 96–98
[2023-10-05 04:31] LABS: BASOPHILS # (AUTO) 0.04 K/uL (0.00-0.20); BASOPHILS % (AUTO) 0.7 % (0.0-5.0); EOSINOPHILS # (AUTO) 0.56 K/uL (0.00-0.70); EOSINOPHILS % (AUTO) 9.8 % (0.0-8.0); HEMATOCRIT 36.4 % (42-54); IMMATURE GRANULOCYTE ABSOLUTE 0.01 K/uL (0-1); LYMPHOCYTES # (AUTO) 1.8 K/uL (1.0-4.8); LYMPHOCYTES % (AUTO) 32.2 % (21.0-51.0); MEAN CORPUSCULAR HEMOGLOBIN 29.9 pg (27.0-33.0); MEAN CORPUSCULAR HGB CONC 33.2 g/dL (32.0-36.0); MEAN CORPUSCULAR VOLUME 89.9 fL (79-99); MONOCYTES # (AUTO) 0.9 K/uL (0.1-1.0); MONOCYTES % (AUTO) 15.2 % (3.0-13.0); NEUTROPHILS # (AUTO) 2.4 K/uL (1.8-7.7); NEUTROPHILS % (AUTO) 41.9 % (40.0-77.0); PLATELET COUNT (AUTO) 255 K/uL (130-400); RED BLOOD CELL COUNT(AUTO) 4.05 MIL/uL (4.50-6.20); WHITE BLOOD COUNT (AUTO) 5.7 K/uL (4.8-10.8)
[2023-10-05 04:47] LABS: ALBUMIN 1.8 g/dL (3.5-5.0); BILIRUBIN,TOTAL 0.4 mg/dL (0.2-1.0); CREATININE 0.7 mg/dL (0.5-1.3); TOTAL PROTEIN, SERUM 6.4 g/dL (6.0-8.3)
[2023-10-05 04:52] VITALS: BP 118/59; PULSE 65; RESP 18
[2023-10-05 08:00] VITALS: BP_SYST 177; BP_SYST 93; BP_DIAS 35; BP_DIAS 81; PULSE 66; PULSE 80; RESP 18; O2SAT 99
[2023-10-05 12:00] VITALS: BP 101/40; PULSE 69; RESP 18
[2023-10-05 17:27] VITALS: BP 119/53; PULSE 71; RESP 18
[2023-10-05 20:00] VITALS: BP 99/36; PULSE 68; RESP 17; O2SAT 98
[2023-10-05 23:25] VITALS: BP 121/48; PULSE 72; RESP 17
[2023-10-06] VITALS (8 sets, daily range): BP systolic 105–130; BP diastolic 40–62; PULSE 69–81; RESP 17–20; O2SAT 99–100
[2023-10-06 05:02] LABS: HEMATOCRIT 34.8 % (42-54); MEAN CORPUSCULAR HEMOGLOBIN 29.7 pg (27.0-33.0); MEAN CORPUSCULAR HGB CONC 33.3 g/dL (32.0-36.0); MEAN CORPUSCULAR VOLUME 89.2 fL (79-99); RED BLOOD CELL COUNT(AUTO) 3.9 MIL/uL (4.50-6.20); RED CELL DISTRIBUTION WIDTH 17.2 % (11.0-15.5); WHITE BLOOD COUNT (AUTO) 5.5 K/uL (4.8-10.8)
[2023-10-06 05:17] LABS: ALBUMIN 1.8 g/dL (3.5-5.0); BILIRUBIN,TOTAL 0.3 mg/dL (0.2-1.0); CREATININE 0.7 mg/dL (0.5-1.3); POTASSIUM 4.5 mmol/L (3.5-5.1); TOTAL PROTEIN, SERUM 6.4 g/dL (6.0-8.3)
[2023-10-07 03:41] VITALS: BP 109/45; PULSE 70; RESP 16
[2023-10-07 08:00] VITALS: BP 119/44; PULSE 63; RESP 18; O2SAT 96
[2023-10-07 12:00] VITALS: BP 122/54; PULSE 67; RESP 18
[2023-10-07 16:00] VITALS: BP 128/55; PULSE 74; RESP 18
[2023-10-07 20:00] VITALS: BP 104/31; PULSE 72; RESP 18; O2SAT 97
[2023-10-08] VITALS (7 sets, daily range): BP systolic 103–131; BP diastolic 43–54; PULSE 64–73; RESP 17–20; O2SAT 98
[2023-10-08] MEDS ORDERED: LISI2.5T13 PO (09:48)
[2023-10-09] VITALS (7 sets, daily range): BP systolic 92–132; BP diastolic 50–62; PULSE 64–97; RESP 18–20; O2SAT 98
[2023-10-10] VITALS (9 sets, daily range): BP systolic 110–131; BP diastolic 57–70; PULSE 68–81; RESP 17–20; O2SAT 98–99
[2023-10-10 05:15] LABS: BASOPHILS # (AUTO) 0.04 K/uL (0.00-0.20); BASOPHILS % (AUTO) 0.7 % (0.0-5.0); EOSINOPHILS # (AUTO) 0.87 K/uL (0.00-0.70); EOSINOPHILS % (AUTO) 14.3 % (0.0-8.0); IMMATURE GRANULOCYTE ABSOLUTE 0.01 K/uL (0-1); LYMPHOCYTES # (AUTO) 1.9 K/uL (1.0-4.8); LYMPHOCYTES % (AUTO) 30.4 % (21.0-51.0); MEAN CORPUSCULAR HEMOGLOBIN 30.3 pg (27.0-33.0); MONOCYTES # (AUTO) 0.8 K/uL (0.1-1.0); MONOCYTES % (AUTO) 13.7 % (3.0-13.0); NEUTROPHILS # (AUTO) 2.5 K/uL (1.8-7.7); NEUTROPHILS % (AUTO) 40.7 % (40.0-77.0); PLATELET COUNT (AUTO) 253 K/uL (130-400); RED BLOOD CELL COUNT(AUTO) 4.02 MIL/uL (4.50-6.20); RED CELL DISTRIBUTION WIDTH 17.7 % (11.0-15.5); WHITE BLOOD COUNT (AUTO) 6.1 K/uL (4.8-10.8)
[2023-10-10 05:38] LABS: ALBUMIN 1.8 g/dL (3.5-5.0); BILIRUBIN,TOTAL 0.4 mg/dL (0.2-1.0); CREATININE 0.8 mg/dL (0.5-1.3); POTASSIUM 3.6 mmol/L (3.5-5.1); TOTAL PROTEIN, SERUM 6.4 g/dL (6.0-8.3)
[2023-10-10] MEDS: ONDANSETRON 4MG INJ IVP PRN (16:33)
[2023-10-10] MEDS ORDERED: acetaMINOPHEN 325 MG TAB PO PRN (18:30)
[2023-10-10] MEDS: acetaMINOPHEN 325 MG TAB PO PRN (19:23)
[2023-10-11] VITALS (8 sets, daily range): BP systolic 94–139; BP diastolic 41–65; PULSE 70–75; RESP 16–20; O2SAT 98–100
[2023-10-11 05:55] LABS: CREATININE 0.9 mg/dL (0.5-1.3); POTASSIUM 3.9 mmol/L (3.5-5.1)
[2023-10-11 06:13] LABS: HEMATOCRIT 38.7 % (42-54); MEAN CORPUSCULAR HGB CONC 32.3 g/dL (32.0-36.0); RED BLOOD CELL COUNT(AUTO) 4.16 MIL/uL (4.50-6.20); RED CELL DISTRIBUTION WIDTH 17.8 % (11.0-15.5); WHITE BLOOD COUNT (AUTO) 7.3 K/uL (4.8-10.8)
[2023-10-12] VITALS (7 sets, daily range): BP systolic 108–117; BP diastolic 42–74; PULSE 60–67; RESP 16–20; O2SAT 100
[2023-10-12] MEDS: LOPERAMIDE HCL 2 MG CAP PO PRN (15:42)
[2023-10-13] VITALS: BP 115/48; PULSE 72; RESP 17
[2023-10-13 04:00] VITALS: BP_SYST 102; BP_SYST 107; BP_DIAS 50; BP_DIAS 70; PULSE 70; PULSE 76; RESP 18
[2023-10-13 08:00] VITALS: BP 116/40; PULSE 67; RESP 18; O2SAT 98
[2023-10-13] MEDS ORDERED: PANT40TA54 PO (08:25)
[2023-10-13 11:50] VITALS: BP 133/47; PULSE 70; RESP 18
[2023-10-13 16:00] VITALS: BP 131/58; PULSE 66; RESP 18
[2023-10-13 20:00] VITALS: BP 140/59; PULSE 72; RESP 18; O2SAT 100
[2023-10-14] VITALS (8 sets, daily range): BP systolic 119–135; BP diastolic 43–66; PULSE 58–77; RESP 16–18; O2SAT 95–99
[2023-10-14] MEDS ORDERED: ONDA-104 PO (12:35)
[2023-10-14] MEDS: ONDANSETRON 4MG INJ IVP PRN (14:16)
[2023-10-14] MEDS: acetaMINOPHEN 325 MG TAB PO PRN (21:45)
[2023-10-15] VITALS (8 sets, daily range): BP systolic 118–132; BP diastolic 55–64; PULSE 63–74; RESP 16–20; O2SAT 98–99
[2023-10-16] VITALS (8 sets, daily range): BP systolic 105–136; BP diastolic 47–74; PULSE 63–69; RESP 16–19; O2SAT 98
[2023-10-16 05:26] LABS: HEMATOCRIT 38.7 % (42-54); MEAN CORPUSCULAR HEMOGLOBIN 29.9 pg (27.0-33.0); MEAN CORPUSCULAR HGB CONC 33.1 g/dL (32.0-36.0); MEAN CORPUSCULAR VOLUME 90.4 fL (79-99); PLATELET COUNT (AUTO) 257 K/uL (130-400); RED BLOOD CELL COUNT(AUTO) 4.28 MIL/uL (4.50-6.20); RED CELL DISTRIBUTION WIDTH 18.3 % (11.0-15.5); WHITE BLOOD COUNT (AUTO) 6.8 K/uL (4.8-10.8)
[2023-10-16 05:37] LABS: POTASSIUM 3.3 mmol/L (3.5-5.1)
[2023-10-16] MEDS: POTASSIUM CHLORIDE 10% ELIXIR 20 MEQ/15 ML UDCUP PO ONE (08:35)
[2023-10-16] MEDS: KCL 20 MEQ ERTAB PO PRN (18:07)
[2023-10-17] VITALS (7 sets, daily range): BP systolic 13–141; BP diastolic 62–72; PULSE 61–71; RESP 17–18; O2SAT 98
[2023-10-17 05:54] LABS: HEMATOCRIT 36.1 % (42-54); MEAN CORPUSCULAR HEMOGLOBIN 30.3 pg (27.0-33.0); MEAN CORPUSCULAR HGB CONC 33.5 g/dL (32.0-36.0); MEAN CORPUSCULAR VOLUME 90.5 fL (79-99); RED BLOOD CELL COUNT(AUTO) 3.99 MIL/uL (4.50-6.20); RED CELL DISTRIBUTION WIDTH 18.3 % (11.0-15.5); WHITE BLOOD COUNT (AUTO) 7.7 K/uL (4.8-10.8)
[2023-10-17 06:23] LABS: MAGNESIUM 1.3 mg/dL (1.80-2.40)
[2023-10-17] MEDS: MAGNESIUM 2GM PREMIX 50ML 50 ML IV PRN (06:34)
[2023-10-18] VITALS (8 sets, daily range): BP systolic 105–141; BP diastolic 56–76; PULSE 62–70; RESP 17–18; O2SAT 98
[2023-10-19] VITALS (8 sets, daily range): BP systolic 108–141; BP diastolic 45–74; PULSE 65–77; RESP 18–20; O2SAT 99
[2023-10-19 06:04] LABS: BASOPHILS # (AUTO) 0.03 K/uL (0.00-0.20); BASOPHILS % (AUTO) 0.4 % (0.0-5.0); EOSINOPHILS # (AUTO) 0.77 K/uL (0.00-0.70); EOSINOPHILS % (AUTO) 9.7 % (0.0-8.0); HEMATOCRIT 38.2 % (42-54); IMMATURE GRANULOCYTE ABSOLUTE 0.03 K/uL (0-1); LYMPHOCYTES % (AUTO) 24.9 % (21.0-51.0); MEAN CORPUSCULAR HEMOGLOBIN 30.4 pg (27.0-33.0); MEAN CORPUSCULAR HGB CONC 32.7 g/dL (32.0-36.0); MEAN CORPUSCULAR VOLUME 92.9 fL (79-99); MONOCYTES # (AUTO) 0.9 K/uL (0.1-1.0); MONOCYTES % (AUTO) 11.1 % (3.0-13.0); NEUTROPHILS # (AUTO) 4.2 K/uL (1.8-7.7); NEUTROPHILS % (AUTO) 53.5 % (40.0-77.0); PLATELET COUNT (AUTO) 294 K/uL (130-400); RED BLOOD CELL COUNT(AUTO) 4.11 MIL/uL (4.50-6.20); RED CELL DISTRIBUTION WIDTH 18.6 % (11.0-15.5); WHITE BLOOD COUNT (AUTO) 7.9 K/uL (4.8-10.8)
[2023-10-19 06:22] LABS: ALBUMIN 1.8 g/dL (3.5-5.0); BILIRUBIN,TOTAL 0.5 mg/dL (0.2-1.0); MAGNESIUM 1.3 mg/dL (1.80-2.40); POTASSIUM 3.3 mmol/L (3.5-5.1); TOTAL PROTEIN, SERUM 6.6 g/dL (6.0-8.3)
[2023-10-19] MEDS: PANTOPRAZOLE 40 MG TAB DR PO SCH (20:48)
[2023-10-20] VITALS (7 sets, daily range): BP systolic 106–140; BP diastolic 65–83; PULSE 65–76; RESP 18–20; O2SAT 99–100
[2023-10-20] MEDS: KETOROLAC 15MG/ML VIAL (15MG/ML) IV PRN (14:26)
[2023-10-21 04:00] VITALS: BP 126/65; PULSE 71; RESP 20
[2023-10-21 05:47] LABS: BASOPHILS # (AUTO) 0.04 K/uL (0.00-0.20); BASOPHILS % (AUTO) 0.6 % (0.0-5.0); EOSINOPHILS # (AUTO) 0.65 K/uL (0.00-0.70); EOSINOPHILS % (AUTO) 9.9 % (0.0-8.0); HEMATOCRIT 36.6 % (42-54); IMMATURE GRANULOCYTE ABSOLUTE 0.02 K/uL (0-1); MEAN CORPUSCULAR HEMOGLOBIN 30.5 pg (27.0-33.0); MEAN CORPUSCULAR HGB CONC 32.8 g/dL (32.0-36.0); MEAN CORPUSCULAR VOLUME 92.9 fL (79-99); MONOCYTES # (AUTO) 0.9 K/uL (0.1-1.0); MONOCYTES % (AUTO) 13.1 % (3.0-13.0); NEUTROPHILS % (AUTO) 46.1 % (40.0-77.0); PLATELET COUNT (AUTO) 240 K/uL (130-400); RED BLOOD CELL COUNT(AUTO) 3.94 MIL/uL (4.50-6.20); WHITE BLOOD COUNT (AUTO) 6.5 K/uL (4.8-10.8)
[2023-10-21 06:14] LABS: ALBUMIN 1.7 g/dL (3.5-5.0); ASPARTATE AMINOTRANSFERASE 34 U/L (10-37); BILIRUBIN,TOTAL 0.4 mg/dL (0.2-1.0); CARBON DIOXIDE 26 mmol/L (21-32); CHLORIDE 107 mmol/L (101-111); CREATININE 0.8 mg/dL (0.5-1.3); GLOMERULAR FILTR. RATE CALC 100 mL/min (>90); GLUCOSE,RANDOM 83 mg/dL (70-105); SODIUM SERUM 141 mmol/L (136-145); TOTAL PROTEIN, SERUM 6.3 g/dL (6.0-8.3); UREA NITROGEN, BLOOD 9 mg/dL (7-18)
[2023-10-21 06:21] LABS: ALANINE AMINOTRANSFERASE < 6 U/L (12-78)
[2023-10-21 08:00] VITALS: BP 125/58; PULSE 65; RESP 20; O2SAT 98
[2023-10-21 12:00] VITALS: BP 114/65; PULSE 73; RESP 20
[2023-10-21 16:00] VITALS: BP 104/65; PULSE 66; RESP 20
[2023-10-21 19:00] VITALS: BP 129/63; PULSE 59; RESP 24
[2023-10-22] VITALS (7 sets, daily range): BP systolic 97–133; BP diastolic 49–98; PULSE 62–85; RESP 18–22; O2SAT 95–99
[2023-10-23] VITALS (7 sets, daily range): BP systolic 105–125; BP diastolic 50–66; PULSE 59–73; RESP 18–20; O2SAT 98
[2023-10-23 05:20] LABS: BASOPHILS # (AUTO) 0.04 K/uL (0.00-0.20); BASOPHILS % (AUTO) 0.5 % (0.0-5.0); EOSINOPHILS # (AUTO) 0.47 K/uL (0.00-0.70); EOSINOPHILS % (AUTO) 5.5 % (0.0-8.0); HEMATOCRIT 36.9 % (42-54); IMMATURE GRANULOCYTE ABSOLUTE 0.04 K/uL (0-1); LYMPHOCYTES # (AUTO) 1.6 K/uL (1.0-4.8); LYMPHOCYTES % (AUTO) 18.5 % (21.0-51.0); MEAN CORPUSCULAR HEMOGLOBIN 30.2 pg (27.0-33.0); MEAN CORPUSCULAR HGB CONC 32.5 g/dL (32.0-36.0); MEAN CORPUSCULAR VOLUME 92.7 fL (79-99); MONOCYTES # (AUTO) 1.1 K/uL (0.1-1.0); MONOCYTES % (AUTO) 12.3 % (3.0-13.0); NEUTROPHILS # (AUTO) 5.4 K/uL (1.8-7.7); NEUTROPHILS % (AUTO) 62.7 % (40.0-77.0); PLATELET COUNT (AUTO) 268 K/uL (130-400); RED BLOOD CELL COUNT(AUTO) 3.98 MIL/uL (4.50-6.20); RED CELL DISTRIBUTION WIDTH 18.7 % (11.0-15.5); WHITE BLOOD COUNT (AUTO) 8.6 K/uL (4.8-10.8)
[2023-10-23 05:33] LABS: ALBUMIN 1.7 g/dL (3.5-5.0); BILIRUBIN,TOTAL 0.7 mg/dL (0.2-1.0); CREATININE 0.9 mg/dL (0.5-1.3); TOTAL PROTEIN, SERUM 6.2 g/dL (6.0-8.3)
[2023-10-24] VITALS (8 sets, daily range): BP systolic 91–136; BP diastolic 33–85; PULSE 71–82; RESP 17–20; O2SAT 95–98
[2023-10-24 04:48] LABS: BASOPHILS # (AUTO) 0.04 K/uL (0.00-0.20); BASOPHILS % (AUTO) 0.3 % (0.0-5.0); EOSINOPHILS # (AUTO) 0.33 K/uL (0.00-0.70); EOSINOPHILS % (AUTO) 2.4 % (0.0-8.0); HEMATOCRIT 38.4 % (42-54); IMMATURE GRANULOCYTE ABSOLUTE 0.05 K/uL (0-1); LYMPHOCYTES # (AUTO) 1.4 K/uL (1.0-4.8); LYMPHOCYTES % (AUTO) 10.1 % (21.0-51.0); MEAN CORPUSCULAR HEMOGLOBIN 30.5 pg (27.0-33.0); MEAN CORPUSCULAR HGB CONC 32.3 g/dL (32.0-36.0); MEAN CORPUSCULAR VOLUME 94.3 fL (79-99); MONOCYTES # (AUTO) 1.4 K/uL (0.1-1.0); MONOCYTES % (AUTO) 9.7 % (3.0-13.0); NEUTROPHILS # (AUTO) 10.7 K/uL (1.8-7.7); NEUTROPHILS % (AUTO) 77.1 % (40.0-77.0); PLATELET COUNT (AUTO) 272 K/uL (130-400); RED BLOOD CELL COUNT(AUTO) 4.07 MIL/uL (4.50-6.20); WHITE BLOOD COUNT (AUTO) 13.9 K/uL (4.8-10.8)
[2023-10-24 05:28] LABS: ALBUMIN 1.7 g/dL (3.5-5.0); BILIRUBIN,TOTAL 0.4 mg/dL (0.2-1.0); CREATININE 0.9 mg/dL (0.5-1.3); POTASSIUM 3.2 mmol/L (3.5-5.1); TOTAL PROTEIN, SERUM 6.3 g/dL (6.0-8.3)
[2023-10-25] VITALS (8 sets, daily range): BP systolic 93–112; BP diastolic 32–58; PULSE 65–73; RESP 16–20; O2SAT 98
[2023-10-25 05:22] LABS: BASOPHILS # (AUTO) 0.04 K/uL (0.00-0.20); BASOPHILS % (AUTO) 0.2 % (0.0-5.0); EOSINOPHILS % (AUTO) 1.2 % (0.0-8.0); HEMATOCRIT 35.2 % (42-54); IMMATURE GRANULOCYTE ABSOLUTE 0.08 K/uL (0-1); LYMPHOCYTES # (AUTO) 1.6 K/uL (1.0-4.8); LYMPHOCYTES % (AUTO) 9.3 % (21.0-51.0); MEAN CORPUSCULAR HEMOGLOBIN 30.4 pg (27.0-33.0); MEAN CORPUSCULAR HGB CONC 33.5 g/dL (32.0-36.0); MEAN CORPUSCULAR VOLUME 90.7 fL (79-99); MONOCYTES # (AUTO) 1.8 K/uL (0.1-1.0); MONOCYTES % (AUTO) 10.5 % (3.0-13.0); NEUTROPHILS # (AUTO) 13.5 K/uL (1.8-7.7); NEUTROPHILS % (AUTO) 78.3 % (40.0-77.0); PLATELET COUNT (AUTO) 280 K/uL (130-400); RED BLOOD CELL COUNT(AUTO) 3.88 MIL/uL (4.50-6.20); RED CELL DISTRIBUTION WIDTH 18.8 % (11.0-15.5); WHITE BLOOD COUNT (AUTO) 17.2 K/uL (4.8-10.8)
[2023-10-25 05:29] LABS: ALBUMIN 1.5 g/dL (3.5-5.0); ASPARTATE AMINOTRANSFERASE 29 U/L (10-37); BILIRUBIN,TOTAL 0.7 mg/dL (0.2-1.0); CARBON DIOXIDE 27 mmol/L (21-32); CHLORIDE 103 mmol/L (101-111); GLOMERULAR FILTR. RATE CALC 85 mL/min (>90); GLUCOSE,RANDOM 81 mg/dL (70-105); POTASSIUM 3.5 mmol/L (3.5-5.1); SODIUM SERUM 136 mmol/L (136-145); TOTAL PROTEIN, SERUM 5.9 g/dL (6.0-8.3); UREA NITROGEN, BLOOD 14 mg/dL (7-18)
[2023-10-25 05:37] LABS: ALANINE AMINOTRANSFERASE < 6 U/L (12-78)
[2023-10-25] MEDS: MAGNESIUM 2GM PREMIX 50ML 50 ML IV SCH (06:16)
[2023-10-25] MEDS ORDERED: MEROPENEM 1 GM in 0.9%NACL 100ML 100 ML IV SCH (09:30)
[2023-10-25] MEDS ORDERED: COMPOUND IV MISC 1 EACH IVSOLN MISC PRN (10:30)
[2023-10-25] MEDS: MAGNESIUM OXIDE 400 MG TABLET PO SCH (10:31)
[2023-10-25] MEDS: KCL 20 MEQ ERTAB PO ONE (10:31)
[2023-10-25] MEDS: MEROPENEM 1 GM in 0.9%NACL 100ML IVPB SCH (10:32)
[2023-10-25] MEDS: KETOROLAC 15MG/ML VIAL (15MG/ML) IV PRN (12:27)
[2023-10-25 18:36] LABS: APPEARANCE,URINE CLOUDY (CLEAR); BILIRUBIN,URINE NEGATIVE (NEGATIVE); COLOR,URINE YELLOW (YELLOW); GLUCOSE, URINE (UA) NEGATIVE (NEGATIVE); KETONES,URINE 5 mg/dL (NEGATIVE); LEUKOCYTE ESTERASE ,URINE NEGATIVE Leu/uL (NEGATIVE); NITRATE,URINE NEGATIVE (NEGATIVE); OCCULT BLOOD,URINE SMALL (NEGATIVE); PH,URINE 5.5 (5.0-8.0); PROTEIN,URINE 50 mg/dL (NEGATIVE)
[2023-10-25 18:37] LABS: ADD UA MICROSCOPIC YES
[2023-10-25 18:43] LABS: MUCUS,URINE RARE LPF (None Seen); OTHER CASTS, URINE 1 /LPF (None Seen); SQUAMOUS EPITHELIAL CELL,UR MOD /HPF (0-2)
[2023-10-26] VITALS (8 sets, daily range): BP systolic 72–114; BP diastolic 46–55; PULSE 67–82; RESP 16–20; O2SAT 96
[2023-10-26 05:27] LABS: BASOPHILS # (AUTO) 0.03 K/uL (0.00-0.20); BASOPHILS % (AUTO) 0.2 % (0.0-5.0); EOSINOPHILS # (AUTO) 0.27 K/uL (0.00-0.70); EOSINOPHILS % (AUTO) 1.7 % (0.0-8.0); HEMATOCRIT 38.4 % (42-54); IMMATURE GRANULOCYTE ABSOLUTE 0.07 K/uL (0-1); LYMPHOCYTES # (AUTO) 1.5 K/uL (1.0-4.8); LYMPHOCYTES % (AUTO) 9.2 % (21.0-51.0); MEAN CORPUSCULAR HEMOGLOBIN 29.8 pg (27.0-33.0); MEAN CORPUSCULAR HGB CONC 32.6 g/dL (32.0-36.0); MEAN CORPUSCULAR VOLUME 91.6 fL (79-99); MONOCYTES # (AUTO) 1.5 K/uL (0.1-1.0); MONOCYTES % (AUTO) 9.7 % (3.0-13.0); NEUTROPHILS # (AUTO) 12.5 K/uL (1.8-7.7); NEUTROPHILS % (AUTO) 78.8 % (40.0-77.0); PLATELET COUNT (AUTO) 298 K/uL (130-400); RED BLOOD CELL COUNT(AUTO) 4.19 MIL/uL (4.50-6.20); WHITE BLOOD COUNT (AUTO) 15.9 K/uL (4.8-10.8)
[2023-10-26 05:46] LABS: ALBUMIN 1.4 g/dL (3.5-5.0); ASPARTATE AMINOTRANSFERASE 20 U/L (10-37); BILIRUBIN,TOTAL 0.5 mg/dL (0.2-1.0); CARBON DIOXIDE 25 mmol/L (21-32); CHLORIDE 103 mmol/L (101-111); CREATININE 0.8 mg/dL (0.5-1.3); GLOMERULAR FILTR. RATE CALC 100 mL/min (>90); GLUCOSE,RANDOM 81 mg/dL (70-105); POTASSIUM 3.6 mmol/L (3.5-5.1); SODIUM SERUM 135 mmol/L (136-145); TOTAL PROTEIN, SERUM 5.9 g/dL (6.0-8.3); UREA NITROGEN, BLOOD 14 mg/dL (7-18)
[2023-10-26 05:58] LABS: ALANINE AMINOTRANSFERASE < 6 U/L (12-78)
[2023-10-26] MEDS ORDERED: MAGNESIUM OXIDE 400 MG TABLET PO SCH (09:00)
[2023-10-26] MEDS: 0.9% NACL 500ML IV.SOLN 500 ML IV SCH (13:12)
[2023-10-27] VITALS (8 sets, daily range): BP systolic 104–115; BP diastolic 51–66; PULSE 68–72; RESP 14–19; O2SAT 97–98
[2023-10-27 05:24] LABS: BASOPHILS # (AUTO) 0.03 K/uL (0.00-0.20); BASOPHILS % (AUTO) 0.2 % (0.0-5.0); EOSINOPHILS # (AUTO) 0.41 K/uL (0.00-0.70); EOSINOPHILS % (AUTO) 3.2 % (0.0-8.0); HEMATOCRIT 36.5 % (42-54); IMMATURE GRANULOCYTE ABSOLUTE 0.05 K/uL (0-1); LYMPHOCYTES # (AUTO) 1.5 K/uL (1.0-4.8); LYMPHOCYTES % (AUTO) 11.3 % (21.0-51.0); MEAN CORPUSCULAR HGB CONC 33.2 g/dL (32.0-36.0); MEAN CORPUSCULAR VOLUME 90.6 fL (79-99); MONOCYTES # (AUTO) 1.2 K/uL (0.1-1.0); MONOCYTES % (AUTO) 9.5 % (3.0-13.0); NEUTROPHILS # (AUTO) 9.7 K/uL (1.8-7.7); NEUTROPHILS % (AUTO) 75.4 % (40.0-77.0); PLATELET COUNT (AUTO) 300 K/uL (130-400); RED BLOOD CELL COUNT(AUTO) 4.03 MIL/uL (4.50-6.20); WHITE BLOOD COUNT (AUTO) 12.9 K/uL (4.8-10.8)
[2023-10-27 05:31] LABS: ALBUMIN 1.4 g/dL (3.5-5.0); BILIRUBIN,TOTAL 0.6 mg/dL (0.2-1.0); CREATININE 0.7 mg/dL (0.5-1.3); MAGNESIUM 1.7 mg/dL (1.80-2.40); POTASSIUM 3.8 mmol/L (3.5-5.1); TOTAL PROTEIN, SERUM 5.8 g/dL (6.0-8.3)
[2023-10-27] MEDS ORDERED: MAGNESIUM 2GM PREMIX 50ML 50 ML IV SCH (09:30)
[2023-10-28] VITALS (7 sets, daily range): BP systolic 102–127; BP diastolic 51–63; PULSE 62–72; RESP 14–18; O2SAT 98
[2023-10-28 05:23] LABS: BASOPHILS # (AUTO) 0.04 K/uL (0.00-0.20); BASOPHILS % (AUTO) 0.4 % (0.0-5.0); EOSINOPHILS # (AUTO) 0.53 K/uL (0.00-0.70); EOSINOPHILS % (AUTO) 5.2 % (0.0-8.0); HEMATOCRIT 35.5 % (42-54); IMMATURE GRANULOCYTE ABSOLUTE 0.06 K/uL (0-1); LYMPHOCYTES % (AUTO) 19.1 % (21.0-51.0); MEAN CORPUSCULAR HEMOGLOBIN 30.9 pg (27.0-33.0); MEAN CORPUSCULAR HGB CONC 33.8 g/dL (32.0-36.0); MEAN CORPUSCULAR VOLUME 91.5 fL (79-99); MONOCYTES # (AUTO) 1.2 K/uL (0.1-1.0); MONOCYTES % (AUTO) 11.4 % (3.0-13.0); NEUTROPHILS # (AUTO) 6.5 K/uL (1.8-7.7); NEUTROPHILS % (AUTO) 63.3 % (40.0-77.0); PLATELET COUNT (AUTO) 295 K/uL (130-400); RED BLOOD CELL COUNT(AUTO) 3.88 MIL/uL (4.50-6.20); WHITE BLOOD COUNT (AUTO) 10.3 K/uL (4.8-10.8)
[2023-10-28 05:41] LABS: ALBUMIN 1.4 g/dL (3.5-5.0); ASPARTATE AMINOTRANSFERASE 19 U/L (10-37); BILIRUBIN,TOTAL 0.4 mg/dL (0.2-1.0); CARBON DIOXIDE 27 mmol/L (21-32); CHLORIDE 106 mmol/L (101-111); CREATININE 0.7 mg/dL (0.5-1.3); GLOMERULAR FILTR. RATE CALC 104 mL/min (>90); GLUCOSE,RANDOM 80 mg/dL (70-105); POTASSIUM 3.4 mmol/L (3.5-5.1); SODIUM SERUM 137 mmol/L (136-145); TOTAL PROTEIN, SERUM 5.6 g/dL (6.0-8.3); UREA NITROGEN, BLOOD 8 mg/dL (7-18)
[2023-10-28 06:06] LABS: ALANINE AMINOTRANSFERASE < 6 U/L (12-78)
[2023-10-28] MEDS: POTASSIUM CHLORIDE 10% ELIXIR 20 MEQ/15 ML UDCUP PO PRN (09:24)
[2023-10-28] MEDS: HYDROcodone/acetaMINOPHEN 10/325 MG TAB PO PRN (18:39)
[2023-10-29] VITALS (8 sets, daily range): BP systolic 102–116; BP diastolic 54–71; PULSE 61–72; RESP 17–19; O2SAT 97–99
[2023-10-30] VITALS (10 sets, daily range): BP systolic 88–118; BP diastolic 40–61; PULSE 77–88; RESP 16–18; O2SAT 96–98
[2023-10-30 05:56] LABS: HEMATOCRIT 38.7 % (42-54); MEAN CORPUSCULAR HEMOGLOBIN 30.4 pg (27.0-33.0); MEAN CORPUSCULAR HGB CONC 33.6 g/dL (32.0-36.0); MEAN CORPUSCULAR VOLUME 90.4 fL (79-99); RED BLOOD CELL COUNT(AUTO) 4.28 MIL/uL (4.50-6.20); RED CELL DISTRIBUTION WIDTH 18.8 % (11.0-15.5); WHITE BLOOD COUNT (AUTO) 18.9 K/uL (4.8-10.8)
[2023-10-30 06:09] LABS: CREATININE 0.7 mg/dL (0.5-1.3); MAGNESIUM 1.6 mg/dL (1.80-2.40); POTASSIUM 4.3 mmol/L (3.5-5.1)
[2023-10-30] MEDS: LACTOBACILLUS RHAMNOSUS GG 1 EACH CAP.SPRINK PO SCH (13:06)
[2023-10-31] VITALS (68 sets, daily range): BP systolic 55–144; BP diastolic 31–67; PULSE 72–120; RESP 10–51; O2SAT 93–98
[2023-10-31 08:21] LABS: BASOPHILS # (AUTO) 0.03 K/uL (0.00-0.20); BASOPHILS % (AUTO) 0.1 % (0.0-5.0); EOSINOPHILS # (AUTO) 0.04 K/uL (0.00-0.70); EOSINOPHILS % (AUTO) 0.1 % (0.0-8.0); HEMATOCRIT 38.5 % (42-54); IMMATURE GRANULOCYTE ABSOLUTE 1.52 K/uL (0-1); MEAN CORPUSCULAR HEMOGLOBIN 30.8 pg (27.0-33.0); MEAN CORPUSCULAR HGB CONC 33.5 g/dL (32.0-36.0); MEAN CORPUSCULAR VOLUME 91.9 fL (79-99); MONOCYTES # (AUTO) 2.3 K/uL (0.1-1.0); MONOCYTES % (AUTO) 5.7 % (3.0-13.0); NEUTROPHILS # (AUTO) 34.4 K/uL (1.8-7.7); NEUTROPHILS % (AUTO) 85.3 % (40.0-77.0); PLATELET COUNT (AUTO) 461 K/uL (130-400); RED BLOOD CELL COUNT(AUTO) 4.19 MIL/uL (4.50-6.20); RED CELL DISTRIBUTION WIDTH 19.7 % (11.0-15.5)
[2023-10-31 08:34] LABS: WHITE BLOOD COUNT (AUTO) 40.3 K/uL (4.8-10.8)
[2023-10-31 10:06] LABS: BAND NEUTROPHILS % (MANUAL) 27 % (0-2); MAN.DIFF COMMENT-IMPRESSION MANUAL DIFFERENTIAL; MONOCYTES % (MANUAL) 3 % (2-9); PLATELET MORPHOLOGY COMMENT SLIGHT INCREASED; REACTIVE LYMPHOCYTES 1 % (0-0); SEGMENTED NEUTROPHILS % 69 % (40-70); TOTAL CELLS COUNTED 100
[2023-10-31] MEDS: VANCOMYCIN KIT 1 GM/250 ML IV.KIT IV ONE (10:17)
[2023-10-31] MEDS: 0.9%NACL 1000ML 1,000 ML IV SCH (10:29)
[2023-10-31] MEDS ORDERED: NITROGLYCERIN 0.4 MG SL TAB SL PRN (11:00)
[2023-10-31] MEDS: ASPIRIN 325MG TAB PO STA (11:11)
[2023-10-31] MEDS ORDERED: 0.9%NACL 1000ML 1,000 ML IV SCH ×2 (12:00→12:30)
[2023-10-31] MEDS: NOREPINEPHRIN 4MG/NS 250ML 250 ML IV ONE (12:14)
[2023-10-31] MEDS: NOREPINEPHRIN 4MG/NS 250ML 250 ML IV SCH (12:14)
[2023-10-31] MEDS: MIDODRINE HCL 5 MG TABLET PO STA (12:28)
[2023-10-31 13:08] LABS: ABG BASE EXCESS -8.5 mmol/L (-2.0-3.0); ABG HCO3 14.9 mmol/L (21.0-28.0); ABG OXYGEN SATURATION 96.9 % (95.0-99.0); ABG PCO2 26 mmHg (35-48); ABG PH 7.372 (7.35-7.450); CARBON MONOXIDE 1.2; DEVICE COMMENT LR NELLY NP; PO2, ARTERIAL BG 89.4 mmHg (83.0-108.0); VENT MODE, BG N-C (ROOM AIR)
[2023-10-31] MEDS ORDERED: IOHEXOL 350 MG/ML 100ML INFUS..BTL IV ONE (13:36)
[2023-10-31] MEDS: ZOSYN 3.375GM +NS 50ML IV SCH (14:39)
[2023-10-31] MEDS: METRONIDAZOLE 500MG/100ML BAG 100 ML IVPB SCH (14:39)
[2023-10-31] MEDS: PHENYLEPHRINE HCL 10 MG/ML 1ML VIAL IV ONE (15:07)
[2023-10-31] MEDS: hydroCORTisone SOD SUCCINATE 100 MG/2 ML VIAL IV STA (15:17)
[2023-10-31] MEDS: SODIUM BICARB 50MEQ 50ML VIAL IV STA (15:17)
[2023-10-31] MEDS ORDERED: PHENYLEPHRINE HCL 10 MG in 0.9% NACL 250ML 250 ML IV PRN (15:30)
[2023-10-31 15:57] LABS: INR 1.35 (0.85-1.15); PROTHROMBIN TIME 14.3 SEC (9.6-11.6)
[2023-10-31] MEDS ORDERED: COMPOUND IV REFRIGERATED 1 EACH IVSOLN MISC PRN (16:00)
[2023-10-31 16:55] LABS: RAPID GROUP A STREP negative (NEGATIVE)
[2023-10-31 17:05] LABS: COVID19 (SARS ANTIGEN RAPID) PRESUMPTIVE NEGATIVE (NEGATIVE); INFLUENZA TYPE A Negative For Type A (NEGATIVE); INFLUENZA TYPE B Negative For Type B (NEGATIVE)
[2023-10-31] MEDS: NOREPINEPHRINE 16MG/NS 250ML PREMIX IV SCH (17:23)
[2023-10-31 17:25] LABS: CREATININE 1.8 mg/dL (0.5-1.3); POTASSIUM 3.5 mmol/L (3.5-5.1)
[2023-10-31] MEDS: PHARMACY COMMUNICATION MISC SCH (17:30)
[2023-10-31] MEDS: PHENYLEPHRINE HCL 50 MG in 0.9% NACL 250ML 250 ML IV PRN (17:34)
[2023-10-31] MEDS: LIDOCAINE HCL 1% 20 ML VIAL ONE (17:37)
[2023-10-31] MEDS: LACTATED RINGERS 1000ML IV SCH (17:43)
[2023-10-31] MEDS: LIDOCAINE HCL 1% 20 ML VIAL INJ SCH (18:00)
[2023-10-31] MEDS: LACTATED RINGERS 1000ML 1,000 ML IV SCH (18:29)
[2023-10-31] MEDS: PANTOPRAZOLE 40 MG/VIAL IVP SCH (20:29)
[2023-10-31] MEDS: ENOXAPARIN SODIUM 40 MG/0.4 ML SYRINGE SQ SCH (20:30)
[2023-11-01] VITALS (108 sets, daily range): BP systolic 19–179; BP diastolic 8–105; PULSE 80–134; RESP 7–47; O2SAT 90–100
[2023-11-01 04:48] LABS: BASOPHILS # (AUTO) 0.05 K/uL (0.00-0.20); BASOPHILS % (AUTO) 0.1 % (0.0-5.0); EOSINOPHILS # (AUTO) 0.19 K/uL (0.00-0.70); EOSINOPHILS % (AUTO) 0.2 % (0.0-8.0); HEMATOCRIT 44.7 % (42-54); LYMPHOCYTES # (AUTO) 2.8 K/uL (1.0-4.8); LYMPHOCYTES % (AUTO) 2.8 % (21.0-51.0); MEAN CORPUSCULAR HEMOGLOBIN 31.4 pg (27.0-33.0); MEAN CORPUSCULAR HGB CONC 35.1 g/dL (32.0-36.0); MEAN CORPUSCULAR VOLUME 89.4 fL (79-99); MONOCYTES # (AUTO) 5.3 K/uL (0.1-1.0); MONOCYTES % (AUTO) 5.4 % (3.0-13.0); NEUTROPHILS # (AUTO) 82.9 K/uL (1.8-7.7); NEUTROPHILS % (AUTO) 84.2 % (40.0-77.0); NUCLEATED RED BLOOD CELLS 0.1 % (0.0-0.19); PLATELET COUNT (AUTO) 533 K/uL (130-400)
[2023-11-01 04:53] LABS: WHITE BLOOD COUNT (AUTO) 98.4 K/uL (4.8-10.8)
[2023-11-01 05:05] LABS: ALBUMIN 1.1 g/dL (3.5-5.0); BILIRUBIN,TOTAL 0.5 mg/dL (0.2-1.0); CREATININE 2.4 mg/dL (0.5-1.3); POTASSIUM 4.4 mmol/L (3.5-5.1); TOTAL PROTEIN, SERUM 5.9 g/dL (6.0-8.3)
[2023-11-01] MEDS: ALBUMIN (HUMAN) 25% 50 ML IV SCH (05:30)
[2023-11-01] MEDS ORDERED: VANCOMYCIN PROTOCOL PER PHARMACY IV SCH ×2 (06:00→16:00)
[2023-11-01] MEDS: ceFEPime HCL 2 GM VIAL IVPB SCH (06:23)
[2023-11-01] MEDS: SODIUM BICARB 8.4% 50ML SYRING 150 MEQ in DEXTROSE 5%-WATER 1,000 ML IVP SCH (06:38)
[2023-11-01] MEDS: VASOpressin 20 UNITS/ML 1ML Vi 40 UNITS in 0.9%NACL 50ML 40 ML IV SCH (06:40)
[2023-11-01 07:24] LABS: ABG BASE EXCESS -10.6 mmol/L (-2.0-3.0); ABG HCO3 12.1 mmol/L (21.0-28.0); ABG OXYGEN SATURATION 95.6 % (95.0-99.0); ABG PCO2 21 mmHg (35-48); ABG PH 7.371 (7.35-7.450); CARBON MONOXIDE 0.7; HHb 4.4; VENT MODE, BG NC (ROOM AIR)
[2023-11-01] MEDS: VANCOMYCIN 2GM/500 ML BAG 500 ML IV ONE (07:35)
[2023-11-01] MEDS: PROMETHAZINE HCL 25 MG/ML 1ML AMPULE IM PRN (07:45)
[2023-11-01] MEDS: 0.9%NACL 1000ML 1,000 ML IV SCH (09:25)
[2023-11-01 11:16] LABS: ABG BASE EXCESS -13.6 mmol/L (-2.0-3.0); ABG HCO3 12.2 mmol/L (21.0-28.0); ABG OXYGEN SATURATION 93.5 % (95.0-99.0); ABG PCO2 29 mmHg (35-48); ABG PH 7.244 (7.35-7.450); CARBON MONOXIDE 0.8; DEVICE COMMENT NP NELLY; HHb 6.4; PO2, ARTERIAL BG 73.4 mmHg (83.0-108.0); VENT MODE, BG NC (ROOM AIR)
[2023-11-01] MEDS: hydroCORTisone SOD SUCCINATE 100 MG/2 ML VIAL IV SCH (11:21)
[2023-11-01] MEDS: SODIUM BICARB 50MEQ 50ML VIAL 200 ML ONE (11:21)
[2023-11-01] MEDS: SODIUM BICARB 50MEQ 50ML VIAL IV ONE ×2 (11:21→16:12)
[2023-11-01] MEDS ORDERED: SODIUM BICARB 50MEQ 50ML VIAL IV ONE (11:30)
[2023-11-01] MEDS: METOCLOPRAMIDE 10 MG/2 ML VIAL IVP SCH (12:04)
[2023-11-01] MEDS: MEROPENEM 500 MG in 0.9%NACL 100ML 100 ML IV SCH (12:05)
[2023-11-01] MEDS: FUROSEMIDE 20MG VIAL IV STA (13:28)
[2023-11-01] MEDS: FUROSEMIDE 20MG VIAL ONE (13:29)
[2023-11-01 13:45] LABS: BASOPHILS # (AUTO) 0.05 K/uL (0.00-0.20); BASOPHILS % (AUTO) 0.1 % (0.0-5.0); EOSINOPHILS % (AUTO) 0.2 % (0.0-8.0); LYMPHOCYTES # (AUTO) 3.9 K/uL (1.0-4.8); LYMPHOCYTES % (AUTO) 3.9 % (21.0-51.0); MEAN CORPUSCULAR HEMOGLOBIN 30.9 pg (27.0-33.0); MEAN CORPUSCULAR HGB CONC 34.9 g/dL (32.0-36.0); MEAN CORPUSCULAR VOLUME 88.5 fL (79-99); MONOCYTES # (AUTO) 2.6 K/uL (0.1-1.0); MONOCYTES % (AUTO) 2.6 % (3.0-13.0); NEUTROPHILS # (AUTO) 82.3 K/uL (1.8-7.7); NEUTROPHILS % (AUTO) 83.5 % (40.0-77.0); NUCLEATED RED BLOOD CELLS 0.1 % (0.0-0.19); PLATELET COUNT (AUTO) 358 K/uL (130-400); RED BLOOD CELL COUNT(AUTO) 4.86 MIL/uL (4.50-6.20); RED CELL DISTRIBUTION WIDTH 20.5 % (11.0-15.5)
[2023-11-01 13:48] LABS: CREATININE 2.3 mg/dL (0.5-1.3); MAGNESIUM 1.9 mg/dL (1.80-2.40); POTASSIUM 3.9 mmol/L (3.5-5.1)
[2023-11-01] MEDS: ALBUMIN (HUMAN) 25% 100 ML IV ONE ×2 (14:05→16:13)
[2023-11-01 14:11] LABS: WHITE BLOOD COUNT (AUTO) 98.6 K/uL (4.8-10.8)
[2023-11-01] MEDS ORDERED: MIDAZOLAM HCL 1 MG/ML 2ML VIAL IVP PRN (14:30)
[2023-11-01] MEDS ORDERED: NOREPINEPHRINE BITARTRATE 32 MG in 0.9% NACL 250ML 250 ML IV SCH (15:00)
[2023-11-01] MEDS: PHARMACY COMMUNICATION MISC SCH (15:00)
[2023-11-01] MEDS ORDERED: VANCOMYCIN HCL 250/5ML SOLN ORAL.SYG PO SCH (15:30)
[2023-11-01] MEDS ORDERED: COMPOUND PO REF 1 EA BTL MISC PRN (15:30)
[2023-11-01] MEDS ORDERED: MIDAZOLAM HCL 50 MG in 0.9%NACL 50ML 50 ML IV SCH (16:00)
[2023-11-01] MEDS: METRONIDAZOLE 500MG/100ML BAG 100 ML IVPB SCH (16:08)
[2023-11-01] MEDS: LIDOCAINE HCL 1% 20 ML VIAL ONE (16:11)
[2023-11-01] MEDS: MIDAZOLAM 50MG-0.9% NS 50ML 50 ML IV SCH (16:16)
[2023-11-01] MEDS: VANCOMYCIN HCL 250/5ML SOLN ORAL.SYG PO SCH (16:17)
[2023-11-01] MEDS: LIDOCAINE HCL 1% 20 ML VIAL INJ ONE (16:18)
[2023-11-01] MEDS: FENTanyl 2500MCG+NS 250ML 250 ML IV SCH (16:18)
[2023-11-01 16:30] LABS: ABG BASE EXCESS -8.1 mmol/L (-2.0-3.0); ABG HCO3 16.9 mmol/L (21.0-28.0); ABG OXYGEN SATURATION 99.1 % (95.0-99.0); ABG PCO2 34 mmHg (35-48); ABG PH 7.321 (7.35-7.450); CARBON MONOXIDE 0.5; DEVICE COMMENT CARLA RN AL; HHb 0.9; PO2, ARTERIAL BG 160.3 mmHg (83.0-108.0); VENT MODE, BG AC (ROOM AIR)
[2023-11-01] MEDS ORDERED: VANCOMYCIN 2GM/500 ML BAG 500 ML IV ONE (17:00)
[2023-11-01 17:11] LABS: CREATININE,URINE RANDOM 117.34 mg/dL (30-135)
[2023-11-01 17:30] LABS: BAND NEUTROPHILS % (MANUAL) 18 % (0-2); LYMPHOCYTES % (MANUAL) 8 % (22-44); MAN.DIFF COMMENT-IMPRESSION MANUAL DIFFERENTIAL; MONOCYTES % (MANUAL) 4 % (2-9); SEGMENTED NEUTROPHILS % 70 % (40-70); TOTAL CELLS COUNTED 100
[2023-11-01 17:31] LABS: PLATELET MORPHOLOGY COMMENT LARGE PLTS PRESENT
[2023-11-01 19:47] LABS: CREATININE 2.5 mg/dL (0.5-1.3); POTASSIUM 3.6 mmol/L (3.5-5.1)
[2023-11-01] MEDS ORDERED: 0.9%NACL 50ML IV SCH (21:00)
[2023-11-01] MEDS: FLUCONAZOLE 400 MG/NS 200 ML IV SCH (21:22)
[2023-11-01] MEDS: CHLORHEXIDINE GLUCONATE 15 ML MOUTHWASH MM SCH (21:22)
[2023-11-01] MEDS: CALCIUM GLUC 1GM/10ML VIAL IVPB SCH (21:34)
[2023-11-01] MEDS: POTASSIUM CHLORIDE 20MEQ/100ML 100 ML IV PRN (21:35)
[2023-11-01] MEDS: LACTATED RINGERS 1000ML IV SCH (22:36)
[2023-11-02] VITALS (54 sets, daily range): BP systolic 20–119; BP diastolic 15–62; PULSE 87–158; RESP 13–27; TEMP 101.1; O2SAT 94–99
[2023-11-02] MEDS: ARTIFICAL TEARS SOL 15 ML OU SCH
[2023-11-02 00:03] LABS: CREATININE 2.5 mg/dL (0.5-1.3); POTASSIUM 3.8 mmol/L (3.5-5.1)
[2023-11-02 03:40] LABS: ABG BASE EXCESS -6.7 mmol/L (-2.0-3.0); ABG HCO3 15.6 mmol/L (21.0-28.0); ABG OXYGEN SATURATION 98.7 % (95.0-99.0); ABG PCO2 25 mmHg (35-48); ABG PH 7.422 (7.35-7.450); CARBON MONOXIDE 0.7; HHb 1.3; PO2, ARTERIAL BG 124.5 mmHg (83.0-108.0); VENT MODE, BG AC (ROOM AIR)
[2023-11-02 04:04] LABS: BASOPHILS # (AUTO) 0.05 K/uL (0.00-0.20); EOSINOPHILS # (AUTO) 0.84 K/uL (0.00-0.70); EOSINOPHILS % (AUTO) 0.7 % (0.0-8.0); LYMPHOCYTES # (AUTO) 6.8 K/uL (1.0-4.8); LYMPHOCYTES % (AUTO) 5.7 % (21.0-51.0); MEAN CORPUSCULAR HEMOGLOBIN 30.6 pg (27.0-33.0); MEAN CORPUSCULAR HGB CONC 35.1 g/dL (32.0-36.0); MEAN CORPUSCULAR VOLUME 87.2 fL (79-99); MONOCYTES # (AUTO) 3.6 K/uL (0.1-1.0); MONOCYTES % (AUTO) 3.1 % (3.0-13.0); NEUTROPHILS # (AUTO) 87.1 K/uL (1.8-7.7); NEUTROPHILS % (AUTO) 73.3 % (40.0-77.0); NUCLEATED RED BLOOD CELLS 0.3 % (0.0-0.19); PLATELET COUNT (AUTO) 154 K/uL (130-400); RED BLOOD CELL COUNT(AUTO) 4.93 MIL/uL (4.50-6.20); RED CELL DISTRIBUTION WIDTH 20.9 % (11.0-15.5)
[2023-11-02 04:16] LABS: WHITE BLOOD COUNT (AUTO) 118.8 K/uL (4.8-10.8)
[2023-11-02 04:34] LABS: ALBUMIN 1.1 g/dL (3.5-5.0); BILIRUBIN,TOTAL 0.4 mg/dL (0.2-1.0); CREATININE 2.6 mg/dL (0.5-1.3); MAGNESIUM 1.7 mg/dL (1.80-2.40); POTASSIUM 4.3 mmol/L (3.5-5.1); TOTAL PROTEIN, SERUM 4.2 g/dL (6.0-8.3)
[2023-11-02 04:43] LABS: WBC MORPHOLOGY HYPERSEGMENT NEUT 1+
[2023-11-02 04:44] LABS: PLATELET MORPHOLOGY LARGE PLTS PRESENT
[2023-11-02 06:57] LABS: ABG HCO3 11.9 mmol/L (21.0-28.0); ABG OXYGEN SATURATION 91.1 % (95.0-99.0); ABG PCO2 32 mmHg (35-48); ABG PH 7.191 (7.35-7.450); CARBON MONOXIDE 0.9; HHb 8.8; PO2, ARTERIAL BG 69.2 mmHg (83.0-108.0); VENT MODE, BG AC-VC (ROOM AIR)
[2023-11-02] MEDS: SODIUM BICARB 50MEQ 50ML VIAL 200 ML ONE (07:21)
[2023-11-02 07:56] LABS: ABG BASE EXCESS -9.5 mmol/L (-2.0-3.0); ABG HCO3 16.4 mmol/L (21.0-28.0); ABG OXYGEN SATURATION 94.3 % (95.0-99.0); ABG PCO2 36 mmHg (35-48); ABG PH 7.279 (7.35-7.450); CARBON MONOXIDE 0.6; HHb 5.6; PO2, ARTERIAL BG 78.5 mmHg (83.0-108.0); VENT MODE, BG AC (ROOM AIR)
[2023-11-02] MEDS: LACTATED RINGERS 500 ML IV ONE (07:59)
[2023-11-02] MEDS ORDERED: VANCOMYCIN 1G/250ML KIT 250 ML IV SCH (08:00)
[2023-11-02] MEDS: SODIUM BICARB 50MEQ 50ML VIAL IV ONE ×4 (08:06→11:20)
[2023-11-02] MEDS ORDERED: COMPOUND PO MISCELLANEOUS 1 EACH MISC MISC PRN (08:30)
[2023-11-02] MEDS: PHENYLEPHRINE HCL 100 MG in 0.9% NACL 250ML 250 ML IV SCH (08:48)
[2023-11-02] MEDS: LACTATED RINGERS 1000ML IV ONE ×2 (08:57→10:04)
[2023-11-02] MEDS ORDERED: AMIOdarone 900MG VIAL 150 MG in DEXTROSE 5%-WATER 100 ML IV SCH (09:30)
[2023-11-02] MEDS ORDERED: ENOXAPARIN SODIUM 100 MG/1 ML SQ SCH (09:30)
[2023-11-02] MEDS ORDERED: AMIOdarone 900MG VIAL 540 MG in DEXTROSE 5%-WATER 300 ML IV SCH (09:30)
[2023-11-02] MEDS ORDERED: AMIOdarone 900MG VIAL 360 MG in DEXTROSE 5%-WATER 200 ML IV SCH (09:30)
[2023-11-02 09:54] LABS: ABG BASE EXCESS -8.9 mmol/L (-2.0-3.0); ABG HCO3 17.3 mmol/L (21.0-28.0); ABG OXYGEN SATURATION 87.9 % (94.0-98.0); ABG PCO2 38 mmHg (35-48); ABG PH 7.272 (7.350-7.450); CARBON MONOXIDE 0.8 % (0.5-1.5); HHb 11.9; PO2, ARTERIAL BG 58.3 mmHg (83.0-108.0); VENT MODE, BG AC (ROOM AIR)
[2023-11-02 10:05] LABS: BASOPHILS # (AUTO) 0.09 K/uL (0.00-0.20); BASOPHILS % (AUTO) 0.1 % (0.0-5.0); EOSINOPHILS # (AUTO) 1.21 K/uL (0.00-0.70); EOSINOPHILS % (AUTO) 1.1 % (0.0-8.0); HEMATOCRIT 38.3 % (42-54); IMMATURE GRANULOCYTE ABSOLUTE 21.55 K/uL (0-1); LYMPHOCYTES # (AUTO) 8.2 K/uL (1.0-4.8); LYMPHOCYTES % (AUTO) 7.8 % (21.0-51.0); MEAN CORPUSCULAR HEMOGLOBIN 31.3 pg (27.0-33.0); MEAN CORPUSCULAR HGB CONC 34.5 g/dL (32.0-36.0); MEAN CORPUSCULAR VOLUME 90.8 fL (79-99); MONOCYTES # (AUTO) 3.7 K/uL (0.1-1.0); MONOCYTES % (AUTO) 3.5 % (3.0-13.0); NEUTROPHILS % (AUTO) 67.1 % (40.0-77.0); NUCLEATED RED BLOOD CELLS 0.8 % (0.0-0.19); PLATELET COUNT (AUTO) 106 K/uL (130-400); RED BLOOD CELL COUNT(AUTO) 4.22 MIL/uL (4.50-6.20); RED CELL DISTRIBUTION WIDTH 21.3 % (11.0-15.5)
[2023-11-02] MEDS: INSULIN humuLIN R 100 UNIT/ML 3ML SQ SCH (10:50)
[2023-11-02 11:11] LABS: CREATININE 2.5 mg/dL (0.5-1.3); MAGNESIUM 2.1 mg/dL (1.80-2.40); POTASSIUM 4.8 mmol/L (3.5-5.1)
[2023-11-02 11:54] LABS: WHITE BLOOD COUNT (AUTO) 105.7 K/uL (4.8-10.8)
[2023-11-02] MEDS ORDERED: FENTanyl CITRate PF 50 MCG/1 ML 2ML VIAL IVP PRN (12:00)
[2023-11-03] MEDS ORDERED: VANCOMYCIN 1.25 GM/250 ML BAG 250 ML IV SCH (09:00)
[2023-11-03] MEDS ORDERED: ENOXAPARIN SODIUM 30 MG/0.3 ML SQ SCH (09:00)
== END 2023-11-02 13:10 | DRG 371 ==
LOC: EDH 13:12 → EDHIP 19:08 → INTOOBSV 19:08 → OBSVTOIN 19:08 → 3AH 20:27 → 2CH 10-31 11:44
PROVIDERS: ADMIT Internal Medicine; ATTEND Internal Medicine
PROC: 0DJ08ZZ Inspection of Upper Intestinal Tract, Via Natural or Artificial Opening Endoscopic (ICD-10-PCS; 2023-09-22)
PROC: 0DJD8ZZ Inspection of Lower Intestinal Tract, Via Natural or Artificial Opening Endoscopic (ICD-10-PCS; 2023-09-22)
PROC: 03HY32Z Insertion of Monitoring Device into Upper Artery, Percutaneous Approach (ICD-10-PCS; 2023-10-01)
PROC: 02HV33Z Insertion of Infusion Device into Superior Vena Cava, Percutaneous Approach (ICD-10-PCS; principal; 2023-10-31)
PROC: B548ZZA Ultrasonography of Superior Vena Cava, Guidance (ICD-10-PCS; 2023-10-31)
PROC: 0BH17EZ Insertion of Endotracheal Airway into Trachea, Via Natural or Artificial Opening (ICD-10-PCS; 2023-11-01)
PROC: 5A1935Z Respiratory Ventilation, Less than 24 Consecutive Hours (ICD-10-PCS; 2023-11-01)
DX: A04.72 Enterocolitis due to Clostridium difficile, not specified as recurrent (principal); A41.9 Sepsis, unspecified organism; E43 Unspecified severe protein-calorie malnutrition; K29.01 Acute gastritis with bleeding; I21.A1 Myocardial infarction type 2; K57.33 Diverticulitis of large intestine without perforation or abscess with bleeding; R65.21 Severe sepsis with septic shock; J96.01 Acute respiratory failure with hypoxia; K55.039 Acute (reversible) ischemia of large intestine, extent unspecified; E87.1 Hypo-osmolality and hyponatremia; Z68.41 Body mass index [BMI] 40.0-44.9, adult; L97.929 Non-pressure chronic ulcer of unspecified part of left lower leg with unspecified severity; I48.92 Unspecified atrial flutter; N13.6 Pyonephrosis; Z59.00 Homelessness unspecified; D62 Acute posthemorrhagic anemia; K63.3 Ulcer of intestine; Z20.822 Contact with and (suspected) exposure to COVID-19; I10 Essential (primary) hypertension; E11.649 Type 2 diabetes mellitus with hypoglycemia without coma; E87.6 Hypokalemia; E66.01 Morbid (severe) obesity due to excess calories; K44.9 Diaphragmatic hernia without obstruction or gangrene; K64.8 Other hemorrhoids; M25.532 Pain in left wrist; E11.65 Type 2 diabetes mellitus with hyperglycemia; E83.42 Hypomagnesemia; I46.9 Cardiac arrest, cause unspecified; N47.1 Phimosis; K64.0 First degree hemorrhoids; Z66 Do not resuscitate; Z74.01 Bed confinement status; Z80.0 Family history of malignant neoplasm of digestive organs; Z82.49 Family history of ischemic heart disease and other diseases of the circulatory system; Z87.442 Personal history of urinary calculi; Z91.81 History of falling; S52.92XD Unspecified fracture of left forearm, subsequent encounter for closed fracture with routine healing; V89.2XXD Person injured in unspecified motor-vehicle accident, traffic, subsequent encounter
CPT/HCPCS: 31500; 36415; 36556; 36600; 43235; 45378; 71045; 71270; 73100; 73502; 74018; 74178; 76705; 76770; 80048; 80053; 80076; 81001; 82010; 82140; 82270; 82306; 82435; 82533; 82550; 82570; 82803; 82947; 82948; 83036; 83605; 83735; 83880; 84132; 84145; 84295; 84300; 84443; 84484; 84540; 85018; 85025; 85027; 85060; 85610; 85651; 86140; 87040; 87086; 87186; 87324; 87426; 87493; 87804; 87880; 93005; 93306; 94002; 94003; A4344; C1751; C1758; G0378; J0282; J0612; J0692; J0696; J1450; J1644; J1650; J1720; J1815; J1885; J1940; J2001; J2185; J2250; J2371; J2405; J2470; J2543; J2550; J2704; J2765; J3010; J3370; J3475; J3480; J3490; J7030; J7050; J7060; J7070; P9046; P9047; Q9967; 3370; A4215; A4221; A4222; A4223; A4620; A4657; A9900